=== PATIENT | male | born 1945 | race Caucasian/White ===

== ENCOUNTER 2016-05-23 13:07 | Emergency (ER) | payer MEDICARE ==
[~2016-05-23] VITALS: Ht 180.3 cm; Wt 122.7 kg
[2016-05-23 13:18] VITALS: BP 115/67; PULSE 56; RESP 20; O2SAT 98
--- NOTE | 2016-05-23 13:37 | ED.REPORT ---
HPI-General Illness Date of Service May 23, 2016 ED Provider: Brooklyn Winters MD This patient is a former smoking 70 year old male with a history of melanoma with excision and skin graft in November 2015 and pulmonary embolism and DVT on Xarelto, presenting to the ED complaining of bleeding from the surgical wound since yesterday morning. Pt's skin graft wound had been healing well until he started to develop pain 2 weeks ago. He states that it "feels swollen". Pt. states he recently moved from [place] and was seen by wound care there and currently has not established a PCP in [place] yet. He admits to a fever, diarrhea, myalgia, and cough but denies sore throat, nausea, vomiting, SOB, or chills. Fever Tmax: 100.4 for the last 2 days. Pt. states that he has had diarrhea every 30 mins - 1 hour for several weeks that are relieved by antidiarrheals. He also states that he had 5 episodes of diarrhea last night. He denies antibiotic use within the past few months. Nursing Notes Stated Complaint: POST SURGERY/WOUND IN BACK Chief Complaint: General Complaint Nursing Notes Reviewed: Yes Allergies: Coded Allergies: cephalexin (Verified Allergy, Severe, Rash,Itching,, 05/23/16) Influenza Virus Vaccines (Verified Allergy, Unknown, 05/23/16) Scheduled Metoprolol Succinate ER (Metoprolol Succinate ER) 100 Mg Tab.er.24h 100 MG PO DAILY Paroxetine (Paroxetine) 40 Mg Tablet 40 MG PO HS Prednisone (PredniSONE) 10 Mg Tablet 10 MG PO DAILY Simvastatin (Simvastatin) 20 Mg Tablet 20 MG PO HS Miscellaneous Medications Rivaroxaban (Xarelto) 20 Mg Tablet 20 MG PO General Time Seen by MD: 13:37 Chief Complaint Other (Bleeding/pain from wound ) Hx Obtained From: Patient, Daughter Sudden in Onset?: Yes Onset Occurred: Yesterday Symptom Duration: Since onset Location: : Back Quality: Fullness Radiation: : Does not radiate Severity: Current: Moderate Severity: Maximum: Moderate Associated with: Reports: Bleeding, Cough, Fever (Tmax: 100.4), Pain, Denies: Difficulty breathing, Discharge, Nausea, Shortness of breath, Vomiting Pertinent Negative: Pt denies other symptoms Recent Healthcare: No recent hospitalization, Recent doctor visit Similar Sx Previous: Yes Past Medical History Past Medical History Skin graft in November 2015 in [place] after melanoma excision [place] in November 2015 Remote history of pneumothorax Pulmonary embolism DVT Large cell arteritis Reports: Cancer (Melanoma ), Hypertension, Denies: Diabetes mellitus Past Surgical History Heart defilibrator Smoking History Former Smoker Social History Other Social History: Good social support, Local resident Ambulatory Status Independent Review of Systems Full Review of Systems Constitutional: Reports: Fever (Tmax: 100.4), Denies: Chills Respiratory: Reports: Non-productive cough, Denies: Shortness of breath Cardiovascular: Denies: Chest pain GI: Reports: Diarrhea, Denies: Abdominal pain, Nausea, Vomiting Musculoskeletal: Reports: Myalgia Complete sys rev & neg: except as marked. Physical Exam Vital Signs Vital Signs Date Time Temp Pulse Resp B/P Pulse Ox O2 Delivery O2 Flow Rate FiO2 05/23/16 17:57 36.9 63 18 105/36 100 Room Air 05/23/16 13:18 36.9 56 20 115/67 98 Initial VS: Reviewed, Vital signs normal General/Constitutional: Well-developed, Well-nourished Head / Eyes: Atraumatic, Normocephalic, PERRL ENT: Mucous membranes moist, Conjunctiva normal, No scleral icterus Neck: Supple, Non-tender, Full range of motion Respiratory: Breath sounds normal, Clear to auscultation, No respiratory distress Cardiovascular: Regular rate & rhythm, Heart sounds normal, Intact distal pulses Abdomen / GI: Soft, Non-tender, No guarding, No rebound, No distention Skin: Warm, Dry Neurologic: Alert, Oriented, Nonfocal Psychiatric: Mood/affect normal, Behavior normal, Normal thought content General/Constitutional: Awake, Alert, No acute distress, Well appearing, Well developed Back: Full range of motion 1.5 cm area open and draining serous fluid with surrounding tenderness. No fluctuance. Lower Extremity / Pelvis / MS: Neurologic intact, Vascular intact Trace edema Interpretation & Diagnostics Interpretation & Diagnostics: CT thoracic spine: IMPRESSION: Prominent abnormal soft tissue indicates either abnormal granulomatous tissue or recurrence of melanoma. Biopsy would be needed to evaluate this. No fluid collection to indicate abscess is seen. No underlying bone destructive lesion is seen. No involvement of central canal is seen. Prominent enhancement of hazy vertebral venous plexus is noted. Dictated by: Kamron Rodriguez M.D. on 05/23/2016 at 16:44 Lab Results Interpretation Result Diagram: 05/23/16 1430 05/23/16 1430 Test 05/23/16 14:25 05/23/16 14:30 Urine Color Dark yellow (YELLOW) Urine Appearance Clear (CLEAR,HAZY) Urine pH 6.5 (5.0-8.0) Urine Specific [place] 1.025 (1.003-1.035) Urine Protein Tracemg/dL (NEG,TRACE) Urine Glucose (UA) Negativemg/dL (NEGATIVE) Urine Ketones Negativemg/dL (NEGATIVE) Urine Occult Blood Negative (NEGATIVE) Urine Nitrite Negative (NEGATIVE) Urine Bilirubin Negative (NEGATIVE) Urine Urobilinogen Normalmg/dL (NORMAL) Urine Leukocyte Esterase Negative (NEGATIVE) Urine RBC 0-2/hpf (0-2) Urine WBC 0-5/hpf (0-5) Urine Epithelial Cells Moderate/hpf (NONE-MOD) Urine Crystals None seen (NONE SEEN) Urine Bacteria Few/hpf (NONE-FEW) Urine Hyaline Casts None/lpf (NONE) Urine Granular Casts None seen (NONE SEEN) Urine Waxy Casts None seen (NONE SEEN) Urine Red Blood Cell Casts None seen (NONE SEEN) Urine White Blood Cell Casts None seen (NONE SEEN) Urine Mucus Present (None Seen) Urine Trichomonas None seen (NONE SEEN) Urine Yeast None (NONE SEEN) Urinalysis Comment None Urine Culture Reflexed Not indicated White Blood Count 3.3th/mm3 (3.8-10.1) Red Blood Count 4.48mil/mm3 (4.40-5.80) Hemoglobin 13.1g/dL (13.8-17.2) Hematocrit 40.0% (41.0-50.0) Mean Corpuscular Volume 89.3fL (81-100) Mean Corpuscular Hemoglobin 29.2pg (27.0-35.0) Mean Corpuscular Hemoglobin Concent 32.8% (32.0-37.0) Red Cell Distribution Width 14.9% (12.3-15.4) Platelet Count 162bil/L (150-400) Neutrophils (%) (Auto) 36.4% (40-74) Lymphocytes (%) (Auto) 28.5% (14-46) Monocytes (%) (Auto) 31.5% (4-12) Eosinophils (%) (Auto) 1.8% (0-5) Basophils (%) (Auto) 0.3% (0-3) Sodium Level 140mEq/L (134-144) Potassium Level 4.3mEq/L (3.5-5.2) Chloride Level 102mEq/L (97-108) Carbon Dioxide Level 23mmol/L (18-29) Blood Urea Nitrogen 19mg/dL (8-27) Creatinine 1.10mg/dL (0.76-1.27) Estimat Glomerular Filtration Rate 70mL/min (>59) Glucose Level 100mg/dL (60-99) Calcium Level 9.7mg/dL (8.5-10.1) Magnesium Level 1.8mg/dL (1.6-2.6) Total Bilirubin 0.3mg/dL (0.0-1.2) Aspartate Amino Transf (AST/SGOT) 26U/L (0-50) Alanine Aminotransferase (ALT/SGPT) 15U/L (0-44) Alkaline Phosphatase 84U/L (25-160) Total Protein 7.0g/dL (6.4-8.4) Albumin 3.7g/dL (3.4-5.0) Hold Poon Top Tube Received (Received) X-Ray Chest Interpretation Chest Xray Interpretation: IMPRESSION: No acute disease is seen in the portable upright chest. Cause of fever is not identified on this x-ray. Dictated by: Kamron Rodriguez M.D. on 05/23/2016 at 17:14 View: Portable, 1 view Interpretation / Wet Read by: Interpret - Radiologist Re-Eval/Medical Decision Med Decision/Clinical Course This patient presents with an open draining lesion to his back where he previously had melanoma. It sounds like he was supposed to follow-up for further therapy but moved to this area and has not. It looks like he has had a recurrence of melanoma. I spoke with Dr. Dean will see him this week. I spoke with Dr. Mathews, one of our surgeons, they will also see him this week. I stressed the need for him to follow-up. As far as the patient's fever and achiness, it is likely related to inflammatory changes or mass. Time of Eval: 17:16 Patient Status: Condition unchanged Re-Evaluation/Progress Note: Pt. rechecked and ready for discharge. He was told to make an appointment with Dr. Bassett, oncologist, and Dr. Mathews, general surgeon this week. Pt. agrees and understands with plan. All questions have been addressed at this time. Consultation #1: Referral / Consult Name: Rajesh Dean MD Consulted With: Wash Tank Tender, On-call physician Call Returned at: 16:57 Student Development Specialist: Agrees with princess, Agrees with plan Note: Oncologist Consultation #2: Referral / Consult Name: Cliff Mathews MD Consulted With: Surgeon Call Returned at: 17:10 Student Development Specialist: Will see in office, Agrees with princess, Agrees with plan Counseled Regarding: Diagnosis, Lab results, Need for follow-up, When/why to return to ED Discharge & Departure Primary Impression: Recurrent malignant melanoma of skin Disposition: Home Discharge Condition All VS Reviewed: Yes Condition: Stable Additional Instructions: Thank you for entrusting your care with us today. You have recurrent melanoma and need more treatments and surgeries. Please call Dr. Dean, oncologist, to make an appointment to see him this week in his office. Also, please call Dr. Mathews, general surgeon, to make an appointment to see him this week in his office. Please call them tomorrow and let them know that Dr. Winters spoke with them. Return to the emergency department for emergent or concerning symptoms such as pus-like discharge or increased redness around the area. Referrals: Rajesh Dean MD, David M MD Scribe Attestation Portions of this note were transcribed by Emmy Middleton and Guerline Soto. I, Dr. Winters personally performed the history, physical exam and medical decision- making; I reviewed and confirmed the accuracy of the information in the transcribed note. Signed by: Emmy Middleton and Carina Austin, 05/23/2016 and 1723. copies to: Rajesh Dean MD; Cliff Mathews MD, Jena M MD May 23, 2016 13:37 Matilde Soto [Guerline] May 23, 2016 14:06 Emmy Middleton May 23, 2016 16:46
[2016-05-23] MEDS ORDERED: 0.9% Sodium Chloride 500 ML IV ONE (13:55)
[2016-05-23] MEDS ORDERED: METO-274 PO (14:04)
[2016-05-23] MEDS ORDERED: RIVA20TA PO (14:04)
[2016-05-23] MEDS ORDERED: PRE10 PO (14:04)
[2016-05-23] MEDS ORDERED: PARO40TA3 PO (14:04)
[2016-05-23] MEDS ORDERED: SIMV20TA4 PO (14:04)
[2016-05-23 14:43] LABS: BASOPHILS % (AUTO) 0.3 % (0-3); EOSINOPHILS % (AUTO) 1.8 % (0-5); MONOCYTES % (AUTO) 31.5 % (4-12); Mean Corpuscular Hemoglobin 29.2 pg (27.0-35.0); Mean Corpuscular Volume 89.3 fL (81-100); NEUTROPHILS % (AUTO) 36.4 % (40-74); Platelet Count 162 bil/L (150-400)
[2016-05-23 14:51] LABS: APPEARANCE,URINE CLEAR (CLEAR,HAZY); COLOR,URINE DARK YELLOW (YELLOW)
[2016-05-23 14:52] LABS: OCCULT BLOOD,URINE NEGATIVE (NEGATIVE); PH,URINE 6.5 (5.0-8.0); UROBILINOGEN,URINE NORMAL (NORMAL)
[2016-05-23 15:06] LABS: Magnesium 1.8 mg/dL (1.6-2.6)
--- NOTE | 2016-05-23 16:47 | DRSVH ---
PROCEDURE: CT THORACIC SPINE WITH CONTRAST ([id number]) INDICATIONS: open wound hx melanoma TECHNIQUE: After the administration of intravenous Isovue contrast, 3 mm thick sections acquired through the lev els of interest. Sagittal and coronal reformats were then constructed. For radiation dose reduction , the following was used: automated exposure control. COMPARISON: None. FINDINGS: Image quality: Excellent. Bones: No bony destructive change is seen. Enhancement in the region of basivertebral veins as though t to be due to the prominence of vasculature in the system rather than any tumor in the region. No ab normal destructive changes seen. Soft tissues: There is abnormal soft tissue dorsal to the thoracic spine centered at approximately T3 . As far as the craniocaudal dimension is concern and slightly to the left of midline in the axial pl ane. This area of abnormal soft tissue measures approximately 8 cm in length 2.8 cm in thickness in 1 0 cm in transverse dimension with a central ulceration. There is linear irregular areas of increased attenuation consistent with enhancement. No loculated fluid is seen. Prominence of the soft tissues w ithout loculated fluid makes this suspicious for recurrence of melanoma rather than simply inflammato ry change postoperative. Biopsy would be needed to confirm this. IMPRESSION: Prominent abnormal soft tissue indicates either abnormal granulomatous tissue or recurren ce of melanoma. Biopsy would be needed to evaluate this. No fluid collection to indicate abscess is s een. No underlying bone destructive lesion is seen. No involvement of central canal is seen. Prominent enhancement of hazy vertebral venous plexus is noted. Dictated by: Kamron Rodriguez M.D. on 05/23/2016 at 16:44 Approved by: Kamron Rodriguez M.D. on 05/23/2016 at 16:44
--- NOTE | 2016-05-23 17:16 | DRSVH ---
PROCEDURE: X-RAY CHEST ONE VIEW, PORTABLE ([id number]) INDICATIONS: fever TECHNIQUE: One view of the chest was acquired. COMPARISON: None. FINDINGS: Surgical changes and devices: Pacer defibrillator from the left chest with 2 leads is present. Lungs and pleura: No pleural effusions or pneumothorax. Lungs are clear. Mediastinum: Mediastinal contours appear normal. Heart size is normal. Bones and chest wall: No suspicious bony lesions. Overlying soft tissues appear unremarkable. IMPRESSION: No acute disease is seen in the portable upright chest. Cause of fever is not identified on this x-ray. Dictated by: Kamron Rodriguez M.D. on 05/23/2016 at 17:14 Approved by: Kamron Rodriguez M.D. on 05/23/2016 at 17:14
[2016-05-23 17:57] VITALS: BP 105/36; PULSE 63; RESP 18; O2SAT 100
[2016-08-26] MEDS ORDERED: DIGO125T73 PO (12:39)
[2016-08-26] MEDS ORDERED: FURO-129 PO (12:39)
== END 2016-05-23 17:58 | disposition home or self-care (01) ==
LOC: SED 13:07
DX: C44.90 Unspecified malignant neoplasm of skin, unspecified (principal); I10 Essential (primary) hypertension; Z86.711 Personal history of pulmonary embolism; I25.2 Old myocardial infarction; Z87.891 Personal history of nicotine dependence; Z88.1 Allergy status to other antibiotic agents; Z88.8 Allergy status to other drugs, medicaments and biological substances
CPT/HCPCS: 36415; 71010; 72129; 80053; 81000; 83735; 85025; 96361; 96374; 99285; J2060; J7040; Q9967

== ENCOUNTER 2016-06-06 18:27 | Inpatient (IN) | payer MEDICARE ==
[~2016-06-06] VITALS: Ht 180.3 cm; Wt 125.0 kg
[~2016-06-06 18:27] MED LIST: METO-274 PO; PARO40TA3 PO; PRE10 PO; RIVA20TA PO; SIMV20TA4 PO
[2016-06-06 18:50] VITALS: BP 134/84; PULSE 67; RESP 20; O2SAT 94
[2016-06-06 20:30] VITALS: BP 130/78; PULSE 72; RESP 19; O2SAT 92
[2016-06-06] MEDS ORDERED: 0.9% Sodium Chloride 1,000 ML IV ONE (20:46)
--- NOTE | 2016-06-06 20:46 | ED.REPORT ---
HPI-General Illness Date of Service Jun 06, 2016 ED Provider: Dr. Gonzalo Fall M.D. A 70 year old male with a medical history including DC, PE, DVT, hypertension, hyperlipidemia, and melanoma s/p melanoma excision presents to the ED with a fever (38.7 in ED) onset today. The patient also reports chills, left elbow pain , abdominal pain, and a chronic back wound from surgical melanoma excision. He denies cough, sore throat, dysuria, constipation, diarrhea, or bowel incontinence. The patient was recently seen by his oncologist with concern for returning melanoma. Nursing Notes Stated Complaint: FEVER, BODY CHILLS Chief Complaint: General Complaint Nursing Notes Reviewed: Yes Allergies: Coded Allergies: cephalexin (Verified Allergy, Severe, Rash,Itching,, 05/23/16) Influenza Virus Vaccines (Verified Allergy, Unknown, 05/23/16) Scheduled Metoprolol Succinate ER (Metoprolol Succinate ER) 100 Mg Tab.er.24h 100 MG PO DAILY Paroxetine (Paroxetine) 40 Mg Tablet 40 MG PO HS Prednisone (PredniSONE) 10 Mg Tablet 10 MG PO DAILY Rivaroxaban (Xarelto) 20 Mg Tablet 20 MG PO DAILY Simvastatin (Simvastatin) 20 Mg Tablet 20 MG PO HS General Time Seen by MD: 20:45 Chief Complaint Fever (38.7 in ED) Hx Obtained From: Patient Arrived By: Walk-in Sudden in Onset?: Yes Onset Occurred: 9 - 12 hours ago Symptom Duration: Since onset Location: : Abdomen: Back Quality: Painful Severity: Current: Moderate Severity: Maximum: Moderate Associated with: Reports: Abdominal pain, Denies: Cough Pertinent Negative: Relieved by nothing Context Related History: Reports Cancer (Melanoma), Reports Hiatal hernia Recent Healthcare: Recent doctor visit Past Medical History Past Medical History Notes: Past Medical History DC in November 2015 Remote history of pneumothorax Pulmonary embolism DVT Large cell arteritis Ascending aortic aneurysm Hyperlipidemia Depression Hiatal hernia Reports: Cancer (Melanoma), Hypertension Past Surgical History Heart defilibrator LAD cardiac stenting Skin graft in November 2015 in [place] after melanoma excision Smoking History Former Smoker Social History Other Social History: Good social support, From out of town ([place], [place]), Local resident Ambulatory Status Independent Review of Systems + chronic back wound from surgical melanoma excision Full Review of Systems Constitutional: Reports: Chills, Fever (38.7) Ears / Nose / Throat: Denies: Sore throat Respiratory: Denies: Non-productive cough GI: Reports: Abdominal pain, Denies: Constipation, Diarrhea Male: Denies Dysuria Musculoskeletal: Reports: Joint pain (Left elbow) Neurologic: Denies: Bowel dysfunction Complete sys rev & neg: except as marked. Physical Exam Vital Signs Vital Signs Date Time Temp Pulse Resp B/P Pulse Ox O2 Delivery O2 Flow Rate FiO2 06/06/16 22:35 76 18 136/82 96 Nasal Cannula 2 06/06/16 20:30 38.1 72 19 130/78 92 Room Air 06/06/16 18:50 38.7 67 20 134/84 94 Room Air Initial VS: Reviewed Head / Eyes: Atraumatic, Normocephalic ENT: Conjunctiva normal, No scleral icterus Neurologic: Alert, Oriented, Nonfocal Psychiatric: Mood/affect normal, Behavior normal, Normal thought content General/Constitutional: Awake, Alert, No acute distress Respiratory / Chest: Breath sounds NL, Breath sounds = bilat, No respiratory distress Cardiovascular: Heart rate NL, Regular rhythm, Heart sounds NL, No gallop, No murmurs, No rubs Upper Extremities Upper Extremity / MS: Full range of motion Left Elbow: Positive: Erythema present (Over olecranon), Warmth present (Over olecranon) No signs of left elbow bursitis Skin: Warm, Dry Chronic wound midline of thoracic spine No discharge Central small drainage areas with no current drainage Interpretation & Diagnostics Interpretation & Diagnostics: Influenza Negative Lab Results Interpretation Result Diagram: 06/06/16204006/06/162040 Test 06/06/16 20:41 06/06/16 22:00 White Blood Count 4.0th/mm3 (3.8-10.1) Red Blood Count 4.50mil/mm3 (4.40-5.80) Hemoglobin 13.1g/dL (13.8-17.2) Hematocrit 39.9% (41.0-50.0) Mean Corpuscular Volume 88.7fL (81-100) Mean Corpuscular Hemoglobin 29.1pg (27.0-35.0) Mean Corpuscular Hemoglobin Concent 32.8% (32.0-37.0) Red Cell Distribution Width 14.7% (12.3-15.4) Platelet Count 135bil/L (150-400) Neutrophils (%) (Auto) 62.0% (40-74) Lymphocytes (%) (Auto) 11.8% (14-46) Monocytes (%) (Auto) 24.1% (4-12) Eosinophils (%) (Auto) 0.3% (0-5) Basophils (%) (Auto) 0.3% (0-3) Erythrocyte Sedimentation Rate 19mm/hr (0-30) Sodium Level 136mEq/L (134-144) Potassium Level 4.5mEq/L (3.5-5.2) Chloride Level 97mEq/L (97-108) Carbon Dioxide Level 22mmol/L (18-29) Blood Urea Nitrogen 19mg/dL (8-27) Creatinine 0.90mg/dL (0.76-1.27) Estimat Glomerular Filtration Rate 88mL/min (>59) Glucose Level 127mg/dL (60-99) Lactic Acid Level 0.9mmol/L (0.4-2.0) Calcium Level 9.7mg/dL (8.5-10.1) Total Bilirubin 0.9mg/dL (0.0-1.2) Aspartate Amino Transf (AST/SGOT) 28U/L (0-50) Alanine Aminotransferase (ALT/SGPT) 15U/L (0-44) Alkaline Phosphatase 96U/L (25-160) Total Protein 6.8g/dL (6.4-8.4) Albumin 3.7g/dL (3.4-5.0) Urine Color Yellow (YELLOW) Urine Appearance Clear (CLEAR,HAZY) Urine pH 6.5 (5.0-8.0) Urine Specific [place] 1.025 (1.003-1.035) Urine Protein Negativemg/dL (NEG,TRACE) Urine Glucose (UA) Negativemg/dL (NEGATIVE) Urine Ketones 15mg/dL (NEGATIVE) Urine Occult Blood Trace (NEGATIVE) Urine Nitrite Negative (NEGATIVE) Urine Bilirubin Negative (NEGATIVE) Urine Urobilinogen Normalmg/dL (NORMAL) Urine Leukocyte Esterase Negative (NEGATIVE) Urine RBC 0-2/hpf (0-2) Urine WBC 0-5/hpf (0-5) Urine Epithelial Cells Occasional/hpf (NONE-MOD) Urine Crystals None seen (NONE SEEN) Urine Bacteria None/hpf (NONE-FEW) Urine Hyaline Casts None/lpf (NONE) Urine Granular Casts None seen (NONE SEEN) Urine Waxy Casts None seen (NONE SEEN) Urine Red Blood Cell Casts None seen (NONE SEEN) Urine White Blood Cell Casts None seen (NONE SEEN) Urine Mucus None seen (None Seen) Urine Trichomonas None seen (NONE SEEN) Urine Yeast None (NONE SEEN) Urine Culture Reflexed Not indicated X-Ray Chest Interpretation Chest Xray Interpretation: IMPRESSION: Subtle radiopacities at the lateral right lung base. Differential considerations include aspiration/infection and pulmonary nodule. Short interval follow up recommended. Dictated by: Jolly Ha M.D. on 06/06/2016 at 21:09 View: Portable, 1 view Interpretation / Wet Read by: Interpret - Radiologist X-Ray Interpretation Xray Interpretation: IMPRESSION: 1. Mild olecranon soft tissue swelling. This finding may be associated with cellulitis or bursitis. No underlying bony abnormality. 2. Small joint effusion. Dictated by: Jolly Ha M.D. on 06/06/2016 at 21:57 Study Performed: 3 View X-Ray Ordered: Elbow left Interpretation / Wet Read by: Interpret - Radiologist Re-Eval/Medical Decision Med Decision/Clinical Course 70-year-old male with a febrile illness. Most likely source appears to be his left elbow which appears to have a cellulitis. I do not appreciate an infected bursa nor do I believe that this is a septic arthritis given his good range of motion and minimal to no effusion on x-ray. He is hemodynamically stable his lactate is normal, he was considered however he does not have impressive findings for this chest x-ray and he does not have pulmonary symptoms. He has a cephalosporin allergy therefore was given IV linezolid. We will be admitted to the hospitalist service. Source of Hx: Old records Time of Eval: 21:28 Patient Status: Condition improved Re-Evaluation/Progress Note: Patient rechecked. Time of Eval: 23:10 Re-Evaluation/Progress Note: Discussed with patient x-ray and lab results, diagnosis, and plan for admit. Patient agrees with plan for care and all questions were addressed. Code status discussed in the presence of his [id number]. Patient is FULL CODE. Consultation : Referral / Consult Name: Jackelin Coffman DO Consulted With: Hospitalist Call Returned at: 23:31 Hospice Massage Therapist: Agrees with eval, Agrees with plan Counseled Regarding: Diagnosis, Lab results, Need for admission Discharge & Departure Primary Impression: Cellulitis Site of cellulitis: extremity Site of cellulitis of extremity: upper extremity Laterality: left Qualified Code: L03.114 - Cellulitis of left upper limb Disposition: ADMITTED TO HOSPITAL Discharge Condition All VS Reviewed: Yes Condition: Stable Referrals: NOPCP (PCP) Scribe Attestation Portions of this note were transcribed by Kaylynn Dodson. I, Dr. Fall, personally performed the history, physical exam, and medical decision-making; I reviewed and confirmed the accuracy of the information in the transcribed note. Signed by: Carina Hightower, 06/06/2016, 23:34 Gonzalo Fall MD Jun 06, 2016 20:45 KAYLYNN DODSON Jun 06, 2016 21:12
[2016-06-06] MEDS ORDERED: Ondansetron 2 mg/mL 2 mL Inj IV PRN (20:50)
[2016-06-06 20:59] LABS: BASOPHILS % (AUTO) 0.3 % (0-3); EOSINOPHILS % (AUTO) 0.3 % (0-5); MONOCYTES % (AUTO) 24.1 % (4-12); Mean Corpuscular Hemoglobin 29.1 pg (27.0-35.0); Mean Corpuscular Volume 88.7 fL (81-100); Platelet Count 135 bil/L (150-400)
--- NOTE | 2016-06-06 21:14 | DRSVH ---
PROCEDURE: X-RAY CHEST ONE VIEW, PORTABLE ([id number]) INDICATIONS: fever TECHNIQUE: One view of the chest was acquired. COMPARISON: [facility], CR, XR CHEST 1VW (PORTABLE), 05/23/2016, 16:32. FINDINGS: Surgical changes and devices: None. Lungs and pleura: Subtle airspace opacities are present at the lateral right lung base. The lungs are otherwise clear. No pleural effusion or pneumothorax. Mediastinum: Mediastinal contours appear normal. Heart size is normal. Bones and chest wall: No suspicious bony lesions. Overlying soft tissues appear unremarkable. IMPRESSION: Subtle radiopacities at the lateral right lung base. Differential considerations include aspiration/infection and pulmonary nodule. Short interval follow up recommended. Dictated by: Jolly Ha M.D. on 06/06/2016 at 21:09 Approved by: Jolly Ha M.D. on 06/06/2016 at 21:13
[2016-06-06] MEDS ORDERED: oxyCODONE-Acetamin 5-325 mg Tablet PO ONE (21:45)
--- NOTE | 2016-06-06 22:00 | DRSVH ---
PROCEDURE: X-RAY LEFT ELBOW COMPLETE, MINIMUM THREE VIEWS ([id number]) INDICATIONS: Left elbow pain/swelling ? soft tissue infection TECHNIQUE: 3 views of the elbow were acquired. COMPARISON: None. FINDINGS: Bones: No fractures or dislocations. No suspicious bony lesions. Soft tissues: There is mild soft tissue swelling over the olecranon. There is a small elbow joint ef fusion. No suspicious soft tissue calcifications. IMPRESSION: 1. Mild olecranon soft tissue swelling. This finding may be associated with cellulitis or bursitis. N o underlying bony abnormality. 2. Small joint effusion. Dictated by: Jolly Ha M.D. on 06/06/2016 at 21:57 Approved by: Jolly Ha M.D. on 06/06/2016 at 21:58
[2016-06-06 22:35] VITALS: BP 136/82; PULSE 76; RESP 18; O2SAT 96
[2016-06-06 22:42] LABS: APPEARANCE,URINE CLEAR (CLEAR,HAZY); COLOR,URINE YELLOW (YELLOW); OCCULT BLOOD,URINE TRACE (NEGATIVE); PH,URINE 6.5 (5.0-8.0); UROBILINOGEN,URINE NORMAL (NORMAL)
[2016-06-06] MEDS ORDERED: Linezolid Inj 600 MG in IV Premix 1 EACH IV ONE (23:15)
[2016-06-06] MEDS ORDERED: Polyethylene Glycol (PEG) 17 Gm Powder PO PRN (23:35)
[2016-06-06] MEDS ORDERED: Alum-Mag Hydrox-Simeth 30 mL Suspension PO PRN (23:35)
[2016-06-06] MEDS ORDERED: Ondansetron 2 mg/mL 2 mL Inj IVPUSH PRN (23:35)
[2016-06-07] VITALS (7 sets, daily range): BP systolic 81–134; BP diastolic 51–72; PULSE 58–84; RESP 16–24; O2SAT 91–98
[2016-06-07] MEDS ORDERED: METO-272 PO (01:24)
[2016-06-07] MEDS ORDERED: METO-274 PO (01:24)
[2016-06-07] MEDS ORDERED: OMEP20TA86 PO (01:28)
--- NOTE | 2016-06-07 01:28 | PCM.HPMED ---
Subjective Date of Service Jun 07, 2016 Primary Provider: Admitting Physician: Jackelin Coffman DO Primary Care Physician: Sarah Attending Physician: Jackelin Coffman DO Admit Status: From the Emergency Department, Remote Telemetry Chief Complaint: Fevers and chills History of Present Illness: Patient is a 70 year old male with a medical history including VA, PE, DVT, hypertension, hyperlipidemia, giant cell arteritis and melanoma s/p melanoma excision presents to the ED with a fever (102.7 at home and 38.7 in ED) onset today. Patient reports the his left elbow started to be painful and warm yesterday and today started to feel feverish with chills. Denies injury. Patient 's [id number] does report that the contrast for the PET scan was infused on left arm this past Tuesday. Associated symptom of abdominal pain, and a chronic back wound from surgical melanoma excision. Patient was recently seen in the ED for the wound in his back bleeding and oozing, was recently followed up by his oncologist, Dr. Huerta for possible recurrence of his melanoma and had a PET scan 3 days ago. He denies cough, sore throat, dysuria, constipation , diarrhea, or bowel incontinence. Patient currently does not have PCP, has establish care appointment with new provider in July. Sees Dr. Huerta regularly. In the ED, vital signs with temperature of 38.7, P67, RR20, BP 134/84, 94% on RA. WBC 4.0. Lactic acid 0.9. ESR 19. Patient was admitted for cellulitis. Review of Systems: Pertinent positives as noted in HPI. All other systems were reviewed and are negative. Allergies Coded Allergies: cephalexin (Verified Allergy, Intermediate, 06/07/16) Diarrhea, vomiting Influenza Virus Vaccines (Verified Adverse Reaction, Unknown, 06/07/16) Diarrhea, vomiting Home Medications Metoprolol Succinate ER (Metoprolol Succinate ER) 100 Mg Tab.er.24h 100 MG PO DAILY Paroxetine (Paroxetine) 40 Mg Tablet 40 MG PO HS Prednisone (PredniSONE) 10 Mg Tablet 10 MG PO DAILY Rivaroxaban (Xarelto) 20 Mg Tablet 20 MG PO DAILY Simvastatin (Simvastatin) 20 Mg Tablet 20 MG PO HS PMH VA in November 2015 Remote history of pneumothorax Pulmonary embolism DVT Large cell arteritis Ascending aortic aneurysm Hyperlipidemia Depression Hiatal hernia Hx of Melanoma Hypertension Surgical History Heart defibrillator LAD cardiac stenting Skin graft in November 2015 in [place] after melanoma excision Family History brother with DM2 mother with giant cell arteritis father with obesity and heart issues Social History Hx Alcohol Use: No Hx Substance Use: No Hx Tobacco Use: Yes Smoking Status: Former Smoker Living Arrangement: with Family Exam Vital Signs Vital Sign - Last Date Time Temp Pulse Resp B/P Pulse Ox O2 Delivery O2 Flow Rate FiO2 06/06/16 22:35 76 18 136/82 96 Nasal Cannula 2 06/06/16 20:30 38.1 Intake and Output 06/06/16 06/06/16 06/07/16 Cumulative From/Thru 15:00 23:00 07:00 06/06/16 18:50 - 06/06/16 23:36 Intake Total 1360 ml 300 ml 1660 ml Balance 1360 ml 300 ml 1660 ml Intake Oral 360 ml 360 ml IV Total 1000 ml 300 ml 1300 ml Exam GEN: AAOx3, NAD HEENT: NC/AT, PERRL, EOMI, sclera anicteric Neck: Supple with full ROM CV: Distant heart sounds. RRR, normal S1,S2. no murmurs, rubs or gallops. Peripheral pulses intact and normal Lungs: CTAB MSK: full extension of left elbow produces pain at olecranon Skin: Mild swelling, erythema and warmth on left olecranon and left lateral forearm, no fluctuance or open lesion noted. Open excisional wound at mid thoracic with no drainage or bleeding. Tenderness to palpation, whole upper back surrounding wound is erythematous and warm to touch Neuro: no focal deficits Psych: normal mood and affect, normal speech Lab and Diagnostics Result Diagram: 06/06/16204006/06/162040 X-Rays, CTs and MRIs Date of Service: 06/06/162045 PROCEDURE: X-RAY CHEST ONE VIEW, PORTABLE ([id number]) IMPRESSION: Subtle radiopacities at the lateral right lung base. Differential considerations include aspiration/infection and pulmonary nodule. Short interval follow up recommended. Dictated by: Jolly Ha M.D. on 06/06/2016 at 21:09 Date of Service: 06/06/162120 PROCEDURE: X-RAY LEFT ELBOW COMPLETE, MINIMUM THREE VIEWS ([id number]) INDICATIONS: Left elbow pain/swelling ? soft tissue infection IMPRESSION: 1. Mild olecranon soft tissue swelling. This finding may be associated with cellulitis or bursitis. No underlying bony abnormality. 2. Small joint effusion. Dictated by: Jolly Ha M.D. on 06/06/2016 at 21:57 Assessment & Plan Patient is a 70 year old male with a medical history including VA, PE, DVT, hypertension, hyperlipidemia, giant cell arteritis and melanoma s/p melanoma excision presents to the ED with a fever (102.7 at home and 38.7 in ED) onset today. Patient reports the his left elbow started to be painful and warm yesterday and today started to feel feverish with chills. Cellulitis of left arm, present on admission. Acute. - patient did have contrast infused on left arm for his PET scan at site of erythema one day prior to elbow pain - T38.7, RR20, does not meet SIRS criteria. qSOFA score of 0. - patient with recent severe allergic rxn to cephalexin, started on linezolid in ED - IVF - have low threshold to obtain BCx if patient continues to spike fever - Repeat lactic acid ordered with am labs Hypertension - continue home dose Metoprolol Hyperlipidemia - continue home dose simvastatin Hx of giant cell arteritis - continue home dose prednisone Hx of DVT and PE - continue home dose Xarelto Hx of VA with defibrillator - telemetry GERD - continue home dose PPI as needed Depression and anxiety - continue home dose paroxetine DVT prophy: Xarelto GI prophy: Home dose PPI PRN CODE: FULL Dispo: Patient admitted for observation likely to be less than 2 overnights, until medically stable. GI Prophylaxis: Proton Pump Inhibitor VTE Prophylaxis: Other (Xarelto) Resuscitation Status: CPR: Attempt Resuscitation Attending Statement The patient was seen and examined together with house staff on 06/06/2016 and I agree with the history, exam and plan as outlined in the note above. Wily Diaz DO Jun 07, 2016 00:02 Jackelin Coffman DO Jun 07, 2016 05:20
[2016-06-07] MEDS ORDERED: MULT-1073 PO (01:29)
[2016-06-07] MEDS ORDERED: 0.9% Sodium Chloride 1,000 ML IV SCH (01:55)
--- NOTE | 2016-06-07 02:40 | NUR ---
ADMIT Pt arrived on floor at 0045 via gurney. Transferred self to bed with cane SBA. NS running at 100. No pain at this time. Left arm swollen and red, also reports l. lymph node removal. Educated pt on not using left arm for BP or lab draws. Admit and med rec done per pt and daughter, Trisha. Hourly rounding in place.
[2016-06-07] MEDS: Pantoprazole 40 mg ER24 Tablet PO SCH (05:47)
[2016-06-07] MEDS ORDERED: MeTOProlol XL 50 mg ER24 Tablet PO SCH ×2 (08:30→21:00)
[2016-06-07] MEDS ORDERED: Hydrocortisone 50 mg/mL 2 mL Inj IVPUSH SCH (08:30)
[2016-06-07] MEDS ORDERED: predniSONE 10 mg Tablet PO SCH (08:30)
[2016-06-07] MEDS ORDERED: 0.9% Sodium Chloride 500 ML IV ONE ×2 (08:50→13:20)
[2016-06-07] MEDS: Vancomycin Dose per Pharmacist XX SCH (08:55)
[2016-06-07] MEDS: predniSONE 20 mg Tablet PO SCH (09:06)
--- NOTE | 2016-06-07 09:20 | NUR ---
Social Work Initial Assessment: SW met with patient at bedside to discuss discharge plan. Patient verified name, address, and contact information. Patient is a 70 year old male admitted under observation status on 06/06/16 for left elbow cellulitis. Patient payer as Medicare. 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 Patient states having VA benefits in [place] but states not being established in [place]. Patient states having no PCP but regularly follows up with oncologist MD Huerta. Patient states residing in [place] with , son and daughter. Patient states pharmacy of choice as [facility] in [place]. Patient has previous HHC history in past. Patient has no previous SNF history. Patient uses a walker and cane at home. Patient states having AD. SW encouraged patient to bring into hospital. Patient states using Xarelto at home and states being able to afford. Patient denied any other discharge needs at this time. SW will continue to follow if further needs arise. PLAN: Home with family via POV, pending clinical course. SW to follow. Jalen GOMEZ Addendum: 06/07/16 at 0925 by KAREN MODI Amended: Links added.
[2016-06-07] MEDS ORDERED: Vancomycin Inj 1,750 MG in Dextrose 5% 500 ML IV ONE (09:45)
[2016-06-07] MEDS ORDERED: Linezolid Inj 600 MG in IV Premix 1 EACH IV SCH (11:00)
--- NOTE | 2016-06-07 11:18 | DRSVH ---
PROCEDURE: US VEINOUS LEG DUPLEX UNILATERAL, LEFT INDICATIONS: Cellulitis of the left leg. Evaluate for DVT. TECHNIQUE: Real-time imaging, as well as color and pulse Doppler interrogation, were performed of the lower extr emity deep veins from the inguinal ligament to the popliteal fossa. COMPARISON: None. FINDINGS: The deep veins are normally compressible, and free of intraluminal thrombus. Color and pu lse Doppler demonstrate normal phasic intraluminal flow. There is normal augmentation response to di stal compression maneuver. IMPRESSION: No deep venous thrombosis in the left lower extremity. Dictated by: Cheri Lund M.D. on 06/07/2016 at 11:15 Approved by: Cheri Lund M.D. on 06/07/2016 at 11:15
--- NOTE | 2016-06-07 11:21 | DRSVH ---
PROCEDURE: US VENOUS ARM DUPLEX UNILATERAL, LEFT INDICATIONS: Left arm swelling. The patient had left axillary lymph node removal in November 2015. Evalua te for deep venous thrombosis. TECHNIQUE: Real-time imaging, as well as color and pulse Doppler interrogation, was performed of the left upper extremity deep veins from the inferior neck to the antecubital fossa. COMPARISON: [facility], US, US VENOUS LEG DPLX UNI LT, 06/07/2016, 9:13. FINDINGS: The internal jugular vein, visualized portions of the subclavian vein, axillary, and brach ial veins are free of intraluminal thrombus. Where physically possible, the veins are normally compr essible. Color and pulse Doppler demonstrate normal intraluminal flow, with expected phasicity and p ulsatility. Additional scanning of the cephalic and basilic veins of the superficial system demonstr ate normal compressibility, without thrombus. Limited examination due to the patient's body habitus. IMPRESSION: Limited examination due to the patient's body habitus. No definitive deep venous thrombo sis in the left upper extremity Dictated by: Cheri Lund M.D. on 06/07/2016 at 11:17 Approved by: Cheri Lund M.D. on 06/07/2016 at 11:20
--- NOTE | 2016-06-07 12:21 | NUR ---
Case Management: YANES and Medicare Part D info given and explained to patient at bedside at 10:25 am. Questions answered. Pt provided with copy, original placed on hard chart. BEN Cohen RN
--- NOTE | 2016-06-07 14:17 | PCM.PHAPRO ---
Progress Vancomycin Management by Pharmacy: -Indication: empiric treatment for pt with cellulitis of L arm -70 yo male, 125kg, serum creatinine 0.9, est clearance ~ 80ml/min -Tmax 37.8, wbc 4, lactic acid 0.9. -Concurrent antibiotics: none, had been initiated on Linezolid in ED -Plan: pt received a loading dose of Vancomycin 1.75gm at 10 am today. Subsequent maintenance doses will be 1.25gm iv [id number]. Trough level shall be checked prior to dose on 06/09 at 12:30 or sooner if creatinine trends up Светлана Candelaria [facility] Jun 07, 2016 14:17
--- NOTE | 2016-06-07 18:31 | NUR ---
Blood pressure Patient's BP reading this am was 81/51 mmHg, Dr. Garces aware. Ordered to fast drip 500 ml of NS. BP rechecked 103/69 mmHg, another 500 ml of NS was administered. Latest BP reading is 110/64 mmHg. Patient was given Ibuprofen 600 mg c/o headache with relief. ECG done this am, AX=574, SK=468. Dr. Garces aware during rounds. Will continue to monitor.
[2016-06-07] MEDS: PARoxetine 20 mg Tablet PO SCH (20:23)
[2016-06-08] MEDS ORDERED: VANCOMYCIN IV SCH (01:00)
[2016-06-08] MEDS ORDERED: DEXTROSE 5% IV SCH (01:00)
--- NOTE | 2016-06-08 01:41 | NUR ---
Pain Pt states, "I can't sleep. My arm is hurting. I need something stronger than ibuprofen." Pt encouraged to take ibuprofen to help decrease left arm pain/swelling. Paged re pt request. Oxycodone ordered. Arm elevated on pillows. Care ongoing
[2016-06-08 03:52] VITALS: BP 137/65; RESP 22; O2SAT 97
[2016-06-08] MEDS: Pantoprazole 40 mg ER24 Tablet PO SCH (06:34)
[2016-06-08 06:44] LABS: BASOPHILS % (AUTO) 0.7 % (0-3); MONOCYTES % (AUTO) 31.9 % (4-12); Mean Corpuscular Hemoglobin 29.4 pg (27.0-35.0); Mean Corpuscular Volume 89.4 fL (81-100); NEUTROPHILS % (AUTO) 42.7 % (40-74); Platelet Count 113 bil/L (150-400)
[2016-06-08 06:48] LABS: Magnesium 1.5 mg/dL (1.6-2.6); Phosphorus 2.8 mg/dL (2.5-4.9)
[2016-06-08] MEDS ORDERED: Magnesium Sulf 2 Gm/50mL Water 2 GM in IV Premix 1 EACH IV ONE (07:10)
[2016-06-08 08:03] VITALS: BP 100/64; PULSE 64; RESP 18; O2SAT 93
[2016-06-08] MEDS: Vancomycin Dose per Pharmacist XX SCH (08:22)
[2016-06-08] MEDS: predniSONE 20 mg Tablet PO SCH (08:22)
[2016-06-08 09:18] LABS: ERYTHROCYTE SEDIMENTATION RATE 38 mm/hr (0-30)
--- NOTE | 2016-06-08 11:38 | PCM.PNMED ---
Subjective Date of Service Jun 08, 2016 Subjective Patient became hypotensive yesterday, received 500 mL normal saline bolus twice Subsequent blood pressure has been stable, Vancomycin was continued, clindamycin was added this morning Patient feels that her arm is more painful and red Denied any visual impairment, pain on the mandaen area No difficulty breathing Exam Vital Signs Vital Sign - Last Date Time Temp Pulse Resp B/P Pulse Ox O2 Delivery O2 Flow Rate FiO2 06/08/16 08:03 36.8 64 18 100/64 93 Room Air 06/08/16 03:52 2.00 Intake and Output 06/07/16 06/07/16 06/08/16 Cumulative From/Thru 15:00 23:00 07:00 06/06/16 18:50 - 06/08/16 06:46 Intake Total 3722 ml 700 ml 6546 ml Output Total 800 ml 300 ml 1350 ml Balance 2922 ml 400 ml 5196 ml Intake Oral 1436 ml 300 ml 2246 ml IV Total 2286 ml 400 ml 4300 ml Output Urine Total 800 ml 300 ml 1350 ml Exam NAD, comfortably laying down on the bed no JVD, MMM, no LAD RRR, nl s1, s2 no mrg CTAB, no w,c S,ND,NT,normoactive BS+ warm, no edema, pulses 2/2 Left forearm, diffuse erythema, mild tenderness to palpate, no ulcers, full range of motion of left elbow joint IVs and Medications Medications Reviewed: Medications were reviewed in detail Lab and Diagnostics Result Diagram: 06/08/16 0555 06/08/16 0555 X-Rays, CTs and MRIs Date of Service: 06/06/162045 PROCEDURE: X-RAY CHEST ONE VIEW, PORTABLE ([id number]) IMPRESSION: Subtle radiopacities at the lateral right lung base. Differential considerations include aspiration/infection and pulmonary nodule. Short interval follow up recommended. Dictated by: Jolly Ha M.D. on 06/06/2016 at 21:09 Date of Service: 06/06/162120 PROCEDURE: X-RAY LEFT ELBOW COMPLETE, MINIMUM THREE VIEWS ([id number]) INDICATIONS: Left elbow pain/swelling ? soft tissue infection IMPRESSION: 1. Mild olecranon soft tissue swelling. This finding may be associated with cellulitis or bursitis. No underlying bony abnormality. 2. Small joint effusion. Dictated by: Jolly Ha M.D. on 06/06/2016 at 21:57 Assessment & Plan Patient is a 70 year old male with a medical history including [place], PE, DVT, hypertension, hyperlipidemia, giant cell arteritis and melanoma s/p melanoma excision presents to the ED with a fever (102.7 at home and 38.7 in ED) onset today. Patient reports the his left elbow started to be painful and warm yesterday and today started to feel feverish with chills. Acute and active #Fever, increased ESR and CRP, present on admission, source : lt forearm cellulitis from infiltrated IV given recent PET scan(reported), no SVT/DVT on doppler, clinically patient behaved as septic yesterday, fever/hypotension, so linezolid changed to vancomycin. also there is a possibility of giant cell arteritis despite limited information, pt stated that he was diagnosed presumptively GCA based on his high ESR, Fhx-mother had GCA, was hospitalized in [facility] 2008, started with prednisone 60mg then gradually tapered to 10mg but currently no follow up with Rheumatology as he recently moved from [place]. -Greatly appreciate Dr. Crawley input, will continue vanc, added clindamycin today for now, -continue prednisone 60mg for now, will try to contact PCP for collateral information -pending infectious w/u-MRSA swab, BCX ngtd. -bolus as needed target MAP>60 -trends fever curve, wbc, esr/crp chronic, stable, Hypertension, continue home dose Metoprolol decreased to 25 tartrate bid given hypotenstive episode 06/07 Hyperlipidemia, continue home dose simvastatin Hx of giant cell arteritis, described above Hx of DVT and PE, continue home dose Xarelto Hx of DE with defibrillator, telemetry GERD, continue home dose PPI as needed Depression and anxiety, continue home dose paroxetine DVT prophy: Xarelto GI prophy: Home dose PPI PRN CODE: FULL Dispo: Patient will likely need to stay 1-2more days given unclear clinical picture GI Prophylaxis: Proton Pump Inhibitor VTE Prophylaxis: Other (Xarelto) Resuscitation Status: CPR: Attempt Resuscitation Time spent 35 minutes Wally Garces MD Jun 08, 2016 11:38
--- NOTE | 2016-06-08 14:38 | CONS ---
[address] [address] CONSULTATION REPORT PATIENT: JUSTINO ZAMARRIPA : 1945 MR#: [id number] ADMIT: 06/06/2016 JOB ID: [id number] DATE OF SERVICE: 06/08/2016 REQUESTING PHYSICIAN: I thank Dr. Garces for this timely consult. REASON FOR CONSULTATION: Left upper extremity cellulitis. HISTORY OF THE PRESENT ILLNESS: The patient is an unfortunate 70-year-old gentleman with a complex past medical history involving giant-cell arteritis or multiple manifestations of organic heart disease, pulmonary emboli, and melanoma on his upper back that was diagnosed and initially treated this past summer. The patient has noted that there have been more problems with the site of his prior melanoma bleeding and perhaps increasing in size, so he sought evaluation just recently by Dr. Dean of our hem/onc department. Dr. Dean ordered a PET scan to evaluate the possibility of a metastatic or more extensive disease with respect to the melanoma, and this was performed on June 04. To facilitate this procedure, an IV was placed in his left antecubital fossa. The patient reports that shortly thereafter, he noticed erythema, tenderness, and warmth beginning actually on the posterior side around the elbow joint itself rather than in the antecubital area. This area of erythema progressively increased over the period of June 04 to June 06 and was associated with high fevers to 102.7, as well as chills, generalized malaise, headache, and some decrease in function in the left elbow and left upper extremity due to the progression of red, angry, and very tender the cellulitis involving primarily the antecubital side of the elbow. Because of these issues, the patient sought evaluation and got into the hospital very early yesterday morning on the . The patient was initially evaluated and started on appropriate antibiotics in the ER on the . One of the antibiotics which was initiated was the linezolid, but it appears that was discontinued because of concerns about drug interactions with other medications, and he now is on a combination of vancomycin and clindamycin. He reports that on this regimen he has already started to feel somewhat better in that his fevers and chills are diminishing, and he thinks may be the cellulitis on the left arm is already starting to get a little better. On the down side though, he reports feeling queasy and wonders if he is going to have perhaps some diarrheal episodes, though these have not yet started. He surmised these side effects may be due to his clindamycin. ID consultation is requested regarding appropriate antibiotic management. PAST MEDICAL HISTORY: 1. Melanoma diagnosed summer with possible localized recurrence at this time. 2. Giant cell arteritis. 3. Organic heart disease. a. Coronary artery disease. b. Ascending aortic aneurysm c. CHF. d. Pacemaker in place. 4. Pulmonary emboli and history of DVT. 5. Hypertension. 6. Hyperlipidemia. 7. Hiatal hernia. FAMILY HISTORY: Positive for a grandfather with tuberculosis, as well as a mother who had giant-cell arteritis. Other family members have had diabetes and heart issues. SOCIAL HISTORY: The patient is a nondrinker, nonsmoker. He did smoke in the distant past, but that was 30 or more years ago. He drinks alcohol on very rare occasions at this time. The patient served in the [employer] during the [place] War. 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 REVIEW OF SYSTEMS: The patient no longer has any headache, but he did earlier in his admission. He has got no visual changes. No sores in the mouth. No trouble swallowing. His neck is without adenopathy. His lungs relatively clear bilaterally. Cardiac tones are regular rate and rhythm without murmur. A pacer is present in the left upper chest. Patient's abdomen is obese, soft, and nontender. The back has an impressive lesion which is about 8 x 9 cm and is more or less a square or very slightly a rectangle. This area conforms to the area apparently where he had his melanoma removed, and a skin graft was done. There are currently pockets and open areas with oozing present within this large area which looks as if there may be progressive tumor. The patient does not have cervical or femoral adenopathy. His lower extremities are without obvious lesion, though he does has some venous stasis changes bilaterally around the ankles. There is no skin breakdown, cellulitis, or synovitis involving the lower extremities. His left upper extremity is notable for erythema which extends about senior care around his elbow. The elbow has full range of motion, and most of the inflammation is anterior rather than posterior. There is no bullae or skin breakdown, and the erythema is a bit warm and slightly tender but not impressively so. Neurologically, the patient is intact with good motor strength. He has peripheral pulses in his feet. LABORATORY STUDIES: Include white count 3100, platelet count 113,000, slowly dropping, sed rate 38, creatinine 0.96. LFTs are normal. CRP is 15.5. Rheumatoid factor is negative. JEOVANNY screen is negative. ANCA is pending. Micro data includes negative flu screen, negative blood cultures, and a negative respiratory viral panel. IMAGING: Includes a chest x-ray done on admission. There is subtle radiopacity at the right lateral lung base which could be aspiration, infection, or pulmonary nodule. An x-ray of the elbow itself shows mild olecranon soft tissue swelling without underlying bony abnormality. An ultrasound of the left upper extremity failed to show any clot. The left lower extremity was also ultrasounded and also has no clot. Of interest is the PET scan which was actually done last Tuesday at about the time the patient had the onset of the cellulitis. It shows an ulcerated subcutaneous mass involving the superior chest wall which they described as 12 x 6 cm. It does have a small focus of hypermetabolic activity. The radiologist thought that this was likely to represent malignancy rather than infection. IMPRESSION: This is a bit of a difficult case of cellulitis in a gentleman who is on chronic steroids for giant cell arteritis, but who also has what appears to be recurrent melanoma involving his back, as well as significant organic heart disease. It is unclear if this started from the venipuncture that was done on Tuesday the to facilitate his PET scan, but I would tend to doubt that just given the rarity of such infections. This infection certainly could be Staphylococcus or Streptococcus. Linezolid was an interesting choice, but given the patient's low platelets as well as his chronic treatment with an selective serotonin reuptake inhibitor, I think this would probably be unwise. I prefer not to give the patient vancomycin because of the inherent risk of toxicity and the need for a central line. I think that daptomycin may offer us a best alternative in terms of its known rapid effect on skin and soft tissue infections and good coverage for both of staphylococcal and streptococcal organisms. I also note this patient is from [place], [place], and just moved here a few months ago. 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 I suspect that the lesion on his back is melanoma, of course, but the possibility of cutaneous coccidioidomycosis is difficult to exclude. He also has a small pulmonary nodule which could be cancer, but it could also be Coxae. A final item of interest is his history of a grandfather with tuberculosis. I am sure this patient was checked while he was in the [employer] in the 1960s, but I think it is worthwhile to check a QuantiFERON Gold at this point. RECOMMENDATIONS: 1. I would discontinue the vancomycin and clindamycin he is on. 2. We will instead start him on daptomycin in a dose of about 6 mg/kg per 24 hours. 3. Will check ASO titer to look for evidence of strep, as well as a QuantiFERON Gold and a coccidioidomycosis antibody. 4. Will continue to follow this interesting patient with you going forward.
--- NOTE | 2016-06-08 15:11 | NUR ---
Case Management: IMM given and explained to patient. No questions at this time. Copy provided to pt, original placed on pt's hard chart. BEN Cohen RN
[2016-06-08] MEDS: DAPTOmycin Inj 750 MG in 0.9% Sodium Chloride 50 ML IV SCH (15:40)
[2016-06-08 16:50] VITALS: BP 107/61; PULSE 69; RESP 18; O2SAT 93
--- NOTE | 2016-06-08 18:50 | NUR ---
Daily Pt denies the need for pain medication, pt wanted nothing today for pain, his pain is in his upper back where he had melanoma removed at the end of last year. Pt had very dry feet and legs, put some lotion on his extremities and it helped immensely.
[2016-06-08 20:04] VITALS: BP 120/74; PULSE 87; RESP 17; O2SAT 94
[2016-06-08] MEDS: PARoxetine 20 mg Tablet PO SCH (20:17)
[2016-06-09 00:36] VITALS: BP 98/44; PULSE 72; RESP 16; O2SAT 98
[2016-06-09 05:31] VITALS: BP 116/69; PULSE 80; RESP 17; O2SAT 97
--- NOTE | 2016-06-09 06:21 | NUR ---
Pt stable throughout the night, however, was unable to sleep and reports feeling "agitated." Pt was medicated for pain during the night and reports no pain this am, and is pleasant when conversing. Pt reports this am that his PIV during the Outpatient PET scan (prior to admit) was placed in the right arm and not the left arm, which has the cellulitis. Addendum: 06/09/16 at 0626 by VEENA RENE RN Title of Note: Pt states he was mistaken to the placement of the PIV during the PET scan
[2016-06-09] MEDS: Pantoprazole 40 mg ER24 Tablet PO SCH (06:40)
[2016-06-09 07:37] LABS: BASOPHILS % (AUTO) 0.2 % (0-3); EOSINOPHILS % (AUTO) 0.5 % (0-5); MONOCYTES % (AUTO) 25.7 % (4-12); Mean Corpuscular Hemoglobin 28.4 pg (27.0-35.0); Mean Corpuscular Volume 89.1 fL (81-100); NEUTROPHILS % (AUTO) 51.7 % (40-74); Platelet Count 146 bil/L (150-400)
[2016-06-09 08:08] LABS: Magnesium 2.1 mg/dL (1.6-2.6); Phosphorus 2.8 mg/dL (2.5-4.9)
[2016-06-09] MEDS: predniSONE 20 mg Tablet PO SCH (08:21)
[2016-06-09] MEDS: DAPTOmycin Inj 750 MG in 0.9% Sodium Chloride 50 ML IV SCH (09:08)
--- NOTE | 2016-06-09 10:19 | PCM.PNMED ---
Subjective Date of Service Jun 09, 2016 Subjective Patient thinks that her left thumb is less warm, but erythema is spreading, more erythematous Otherwise patient feels great, eating well with good appetite Denied headache, vision changes, dizziness Exam Vital Signs Vital Sign - Last Date Time Temp Pulse Resp B/P Pulse Ox O2 Delivery O2 Flow Rate FiO2 06/09/16 05:31 37.0 80 17 116/69 97 Room Air 06/08/16 03:52 2.00 Intake and Output 06/08/16 06/08/16 06/09/16 Cumulative From/Thru 15:00 23:00 07:00 06/06/16 18:50 - 06/09/16 06:25 Intake Total 560 ml 7106 ml Output Total 1225 ml 2575 ml Balance -665 ml 4531 ml Intake Oral 560 ml 2806 ml IV Total 4300 ml Output Urine Total 1225 ml 2575 ml Exam NAD, comfortably laying down on the bed no JVD, MMM, no LAD RRR, nl s1, s2 no mrg CTAB, no w,c S,ND,NT,normoactive BS+ warm, no edema, pulses 2/2 Left forearm, diffuse erythema, less tender, still edematous IVs and Medications Medications Reviewed: Medications were reviewed in detail Lab and Diagnostics Result Diagram: 06/09/1671906/09/16 0720 X-Rays, CTs and MRIs Date of Service: 06/06/162045 PROCEDURE: X-RAY CHEST ONE VIEW, PORTABLE ([id number]) IMPRESSION: Subtle radiopacities at the lateral right lung base. Differential considerations include aspiration/infection and pulmonary nodule. Short interval follow up recommended. Dictated by: Jolly Ha M.D. on 06/06/2016 at 21:09 Date of Service: 06/06/162120 PROCEDURE: X-RAY LEFT ELBOW COMPLETE, MINIMUM THREE VIEWS ([id number]) INDICATIONS: Left elbow pain/swelling ? soft tissue infection IMPRESSION: 1. Mild olecranon soft tissue swelling. This finding may be associated with cellulitis or bursitis. No underlying bony abnormality. 2. Small joint effusion. Dictated by: Jolly Ha M.D. on 06/06/2016 at 21:57 Assessment & Plan Patient is a 70 year old male with a medical history including [place], PE, DVT, hypertension, hyperlipidemia, giant cell arteritis and melanoma s/p melanoma excision presents to the ED with a fever (102.7 at home and 38.7 in ED) onset today. Patient reports the his left elbow started to be painful and warm yesterday and today started to feel feverish with chills. Acute and active #Fever, increased ESR and CRP, present on admission, source : lt forearm cellulitis from infiltrated IV given recent PET scan(reported), no SVT/DVT on doppler, clinically patient behaved as septic yesterday, fever/hypotension, so linezolid changed to vancomycin. also there is a possibility of giant cell arteritis despite limited information, pt stated that he was diagnosed presumptively GCA based on his high ESR, Fhx-mother had GCA, was hospitalized in [facility] 2008, started with prednisone 60mg then gradually tapered to 10mg but currently no follow up with Rheumatology as he recently moved from [place]. -Greatly appreciate Dr. Crawley input, s/p vanc, added clindamycin briefly on then switched to daptomycin -continue prednisone 60mg for now, will try to contact PCP for collateral information -pending infectious w/u-MRSA swab, BCX ngtd, pending serology for coccidiomycosis, Quantiferon TB -autoimmune dz w/u- JEOVANNY negative, ANCA panel pending, -bolus as needed target MAP>60 -trends fever curve, wbc, esr/crp chronic, stable, Hypertension, continue home dose Metoprolol decreased to 25 tartrate bid given hypotenstive episode 06/07 Hyperlipidemia, continue home dose simvastatin Hx of giant cell arteritis, described above Hx of DVT and PE, continue home dose Xarelto Hx of [place] with defibrillator, telemetry GERD, continue home dose PPI as needed Depression and anxiety, continue home dose paroxetine DVT prophy: Xarelto GI prophy: Home dose PPI PRN CODE: FULL Dispo: Patient will likely need to stay 1-2more days given unclear clinical picture GI Prophylaxis: Proton Pump Inhibitor VTE Prophylaxis: Other (Xarelto) Resuscitation Status: CPR: Attempt Resuscitation Time spent 35 minutes Wally Garces MD Jun 09, 2016 10:19
--- NOTE | 2016-06-09 11:30 | PROG NOTE ---
[address] [address] PROGRESS NOTE PATIENT: JUSTINO ZAMARRIPA : 1945 MR#: [id number] ADMIT: 06/06/2016 JOB ID: [id number] DATE: 06/09/2016 INFECTIOUS DISEASE FOLLOWUP NOTE: REASON FOR FOLLOWUP: Left arm lymphedema with associated cellulitis. INTERVAL HISTORY: The patient notes there has been some progression of his left upper extremity cellulitis both proximally and distally overnight. He has not had overt fevers or chills, but he does note there may be some increased pain in the arm as well. No new respiratory or GI symptoms. PHYSICAL EXAMINATION: Reveals an afebrile gentleman, temp 37 degrees, pulse 80, respiratory rate 17, blood pressure 116/69. He is in no acute distress. Oral cavity is not remarkable. Lungs are clear. Abdomen is soft, obese, nontender. The left upper extremity cellulitis has extended considerably along the arm, between the elbow and extending almost all the way to the wrist now. It is mildly erythematous, mildly tender, and without bullae or skin breakdown. The patient has full range of motion of his hand. LABORATORIES: Include white count 4000, platelets 146, creatinine 1.01. Streptozyme 106. Micro studies include a MRSA screen which is pending, blood cultures negative, and a respiratory viral PCR panel negative. IMAGING: Of the arm shows no evidence for DVT. IMPRESSION: This is a gentleman with a history of melanoma who underwent a lymph node dissection in his left axilla. He now has some chronic swelling of his left upper extremity and has developed a cellulitis involving his left upper extremity which is fairly severe. This is likely a streptococcal cellulitis, though we cannot say yet, as we do not have a positive ASO titer or a culture. He has been started on daptomycin which I think is a reasonable choice as it provides almost total coverage for Staph, strep, and probably enterococcus. If his cellulitis does not improve over the next couple of days we may be forced to add gram-negative coverage but I suspect it will turn around before then. RECOMMENDATIONS: 1. Will continue with daptomycin as our sole antibiotic. 2. I would expect a major improvement in the next 2-3 days though perhaps not much before that.
[2016-06-09] MEDS ORDERED: Vancomycin Serum Trough XX ONE (12:30)
[2016-06-09 12:54] VITALS: BP 92/53; PULSE 59; RESP 17; O2SAT 96
[2016-06-09 16:55] VITALS: BP 125/84; PULSE 64; RESP 17; O2SAT 95
[2016-06-09] MEDS: PARoxetine 20 mg Tablet PO SCH (20:07)
[2016-06-09 20:22] VITALS: BP 126/90; PULSE 74; RESP 16; O2SAT 95
--- NOTE | 2016-06-09 23:21 | NUR ---
Assumed care RN was pulled assumed care of patient agree w/previous assessment , c/o of arm discomfort medicated w/prn roxicodone
[2016-06-10 05:44] VITALS: BP 123/79; PULSE 54; RESP 17; O2SAT 96
[2016-06-10] MEDS: Pantoprazole 40 mg ER24 Tablet PO SCH (06:27)
[2016-06-10 06:52] LABS: BASOPHILS % (AUTO) 0.4 % (0-3); EOSINOPHILS % (AUTO) 0.8 % (0-5); MONOCYTES % (AUTO) 21.2 % (4-12); Mean Corpuscular Hemoglobin 28.9 pg (27.0-35.0); Mean Corpuscular Volume 89.4 fL (81-100); Platelet Count 143 bil/L (150-400)
[2016-06-10 07:13] LABS: Magnesium 1.9 mg/dL (1.6-2.6); Phosphorus 3.2 mg/dL (2.5-4.9)
[2016-06-10 08:11] LABS: ERYTHROCYTE SEDIMENTATION RATE 49 mm/hr (0-30)
[2016-06-10] MEDS: predniSONE 20 mg Tablet PO SCH (08:47)
[2016-06-10 09:29] VITALS: BP 116/77; PULSE 52; RESP 16; O2SAT 96
[2016-06-10] MEDS: DAPTOmycin Inj 750 MG in 0.9% Sodium Chloride 50 ML IV SCH (09:50)
--- NOTE | 2016-06-10 11:15 | PROG NOTE ---
[address] [address] PROGRESS NOTE PATIENT: JUSTINO ZAMARRIPA : 1945 MR#: [id number] ADMIT: 06/06/2016 JOB ID: [id number] DATE: 06/10/2016 INFECTIOUS DISEASE FOLLOWUP NOTE: REASON FOR FOLLOWUP: Severe left upper extremity cellulitis in the setting of lymphedema secondary to axillary lymph node dissection for melanoma. INTERVAL HISTORY: Overnight the patient had a minimal sweat which was actually much less than a day before. No associated fevers or chills. He reports that the left arm pain around the elbow actually seems to be improving but he is having more pain along the volar surface of the forearm distally. He reports also some tingling in his hand at times, though he does have intact sensation. No new pulmonary or GI symptoms. PHYSICAL EXAMINATION: Reveals an afebrile gentleman who has been afebrile now since his first hospital day, so over the past 2-3 days. No fever. Temp 36.7, pulse 52 respiratory 16, blood pressure 116/77, saturating well on room air. Examination of oral cavity is unremarkable. Mental status is clear. Lungs relatively clear. Abdomen benign. The left axillary area is free of adenopathy, which is not too surprising since he had an axillary lymph node dissection. The left forearm cellulitis seems diffusely less intense, though along the volar surface of the forearm there is still some quite focal tenderness. There is no blistering bullae or skin breakdown. The hand is uninvolved and has intact pulses and sensation. LABORATORIES: Include white blood count 2500, platelet count 143,000, sed rate 49. His creatinine is 0.9. Urinalysis without white cells. Streptozyme negative. Coccidioidomycosis antibody is pending as is QuantiFERON Gold. MRSA screen has come back negative. Blood cultures negative. IMAGING: No new imaging has been done. IMPRESSION: This is a difficult case of a patient with a quite substantial left upper extremity cellulitis which is undoubtedly related to the axillary lymph node dissection he had, and chronic lymphedema of the left upper extremity. There is what would appear to be a streptococcal infection, but our first ASO titer is so far negative. I think he is improving in terms of his course based on the improvement in his CRP, as well as the resolution of his fevers, but he still has a ways to go before he could be transitioned to oral therapy and discharged. RECOMMENDATIONS: 1. Will continue with the IV daptomycin. 2. Will review this case again tomorrow and as we get closer to the weekend perhaps we can start to consider a transition to oral therapy, but that may still be a couple of days off, until there is more evidence of improvement.
--- NOTE | 2016-06-10 11:34 | PCM.PNMED ---
Subjective Date of Service Jun 10, 2016 Subjective Patient thinks that erythema is getting worse and more painful Exam Vital Signs Vital Sign - Last Date Time Temp Pulse Resp B/P Pulse Ox O2 Delivery O2 Flow Rate FiO2 06/10/16 09:29 36.7 52 16 116/77 96 Room Air 06/08/16 03:52 2.00 Intake and Output 06/09/16 06/09/16 06/10/16 Cumulative From/Thru 15:00 23:00 07:00 06/06/16 18:50 - 06/10/16 05:44 Intake Total 620 ml 560 ml 8286 ml Output Total 1300 ml 550 ml 4425 ml Balance -680 ml 10 ml 3861 ml Intake Oral 620 ml 560 ml 3986 ml IV Total 4300 ml Output Urine Total 1300 ml 550 ml 4425 ml Exam NAD, comfortably laying down on the bed no JVD, MMM, no LAD RRR, nl s1, s2 no mrg CTAB, no w,c S,ND,NT,normoactive BS+ warm, no edema, pulses 2/2 Left forearm, diffuse erythema, less tender, less edematous IVs and Medications Medications Reviewed: Medications were reviewed in detail Lab and Diagnostics Result Diagram: 06/10/1660406/10/16 06 X-Rays, CTs and MRIs Date of Service: 06/06/162045 PROCEDURE: X-RAY CHEST ONE VIEW, PORTABLE ([id number]) IMPRESSION: Subtle radiopacities at the lateral right lung base. Differential considerations include aspiration/infection and pulmonary nodule. Short interval follow up recommended. Dictated by: Jolly Ha M.D. on 06/06/2016 at 21:09 Date of Service: 06/06/162120 PROCEDURE: X-RAY LEFT ELBOW COMPLETE, MINIMUM THREE VIEWS ([id number]) INDICATIONS: Left elbow pain/swelling ? soft tissue infection IMPRESSION: 1. Mild olecranon soft tissue swelling. This finding may be associated with cellulitis or bursitis. No underlying bony abnormality. 2. Small joint effusion. Dictated by: Jolly Ha M.D. on 06/06/2016 at 21:57 Assessment & Plan Patient is a 70 year old male with a medical history including [place], PE, DVT, hypertension, hyperlipidemia, giant cell arteritis and melanoma s/p melanoma excision presents to the ED with a fever (102.7 at home and 38.7 in ED) onset today. Patient reports the his left elbow started to be painful and warm yesterday and today started to feel feverish with chills. Acute and active #Fever, increased ESR and CRP, present on admission, source : lt forearm cellulitis from infiltrated IV given recent PET scan(reported), no SVT/DVT on doppler, clinically patient behaved as septic yesterday, fever/hypotension, so linezolid changed to vancomycin. also there is a possibility of giant cell arteritis despite limited information, pt stated that he was diagnosed presumptively GCA based on his high ESR, Fhx-mother had GCA, was hospitalized in [facility] 2008, started with prednisone 60mg then gradually tapered to 10mg but currently no follow up with Rheumatology as he recently moved from [place]. -Greatly appreciate Dr. Crawley input, s/p vanc, added clindamycin briefly on then switched to daptomycin, but to continue for now and may switch to oral before this weekends. -continue prednisone 60mg for now, will try to contact PCP for collateral information, given low suspicion of GCA flare, would slowly taper steroid soon. -pending infectious w/u-MRSA swab, BCX ngtd, pending serology for coccidiomycosis, Quantiferon TB -autoimmune dz w/u- JEOVANNY negative, ANCA panel pending, -bolus as needed target MAP>60 -trends fever curve, wbc, esr/crp chronic, stable, Hypertension, continue home dose Metoprolol decreased to 25 tartrate bid given hypotenstive episode 06/07 Hyperlipidemia, continue home dose simvastatin Hx of giant cell arteritis, described above Hx of DVT and PE, continue home dose Xarelto Hx of [place] with defibrillator, telemetry GERD, continue home dose PPI as needed Depression and anxiety, continue home dose paroxetine DVT prophy: Xarelto GI prophy: Home dose PPI PRN CODE: FULL Dispo: Patient will likely need to stay 2-3 more days given IV antibiotics, slow response GI Prophylaxis: Proton Pump Inhibitor VTE Prophylaxis: Other (Xarelto) Resuscitation Status: CPR: Attempt Resuscitation Time spent 35 minutes Wally Garces MD Jun 10, 2016 11:34
--- NOTE | 2016-06-10 17:43 | NUR ---
Wound Care Wound evaluation order received, pt examined at bedside today. Patient is a 70 year old male with a medical history including [place], PE, DVT, hypertension, hyperlipidemia, giant cell arteritis and melanoma s/p melanoma excision presents to the ED with a fever (102.7 at home and 38.7 in ED). Pt presents with a lesion which has in the past been obviously widely excised and skin grafted at his mid back which has gone on to breakdown centrally. There is a 1 cm x 0.5 cm x 0.7 cm lesion at 12:00 from a larger but shallower lesion that is 2 cm x 3 cm x 0.1 cm. The small deep wound does not appear to be draining and does not tunnel but undermines minimally toward the larger ulcer. Both ulcers were cleaned and redressed. Suspicion is high for a reoccurrence of a cancerous lesion and patient tells me he has seen Dr Leyva and that Dr Garcia from plastics is to see the patient, I am unclear but suspect this may be occurring on an outpatient basis. I do not believe this lesion is responsible for his current hospitalization, while he has a cellulitis at his left elbow and forearm I cannot appreciate any skin issue bringing this on. Recommended hydrogel to this dry lesion on the back covered by a mepilex foam dressing and changed by nursing at 48 hour intervals. No further wound care needed at this time.
--- NOTE | 2016-06-10 17:46 | NUR ---
Pain This morning patient stated he had 8/10 pain in l arm r/t cellulitis. Arm was pink/red, swollen and painful to touch. Patient stated arm felt like it was getting worse. PRN oxycodone given with good relief. Patient currently states his arm feel much better than this morning and rates pain at 4/10.
[2016-06-10 17:54] VITALS: BP 125/78; PULSE 61; RESP 15; O2SAT 96
[2016-06-10] MEDS: PARoxetine 20 mg Tablet PO SCH (20:00)
[2016-06-10 20:02] VITALS: BP 138/76; PULSE 62; RESP 16; O2SAT 96
[2016-06-11 04:09] VITALS: BP 120/78; PULSE 71; RESP 20; O2SAT 98
--- NOTE | 2016-06-11 04:48 | NUR ---
Pain Pt reported Oxycodone effective for pain. Patient mentioned that his arm not as tight and feels a little bit better at this time. Left arm with some increase in redness from marking noted. No drainage noted. Dressing on mid upper back CDI. 02sat in mid to high 90s on 2L.
[2016-06-11] MEDS: Pantoprazole 40 mg ER24 Tablet PO SCH (05:59)
[2016-06-11 07:30] LABS: Mean Corpuscular Hemoglobin 29.2 pg (27.0-35.0); Mean Corpuscular Volume 89.6 fL (81-100); Platelet Count 156 bil/L (150-400)
--- NOTE | 2016-06-11 07:30 | NUR ---
Tele Hospitalist asked if tele was indicated and was informed that it is not at this time.
[2016-06-11] MEDS: predniSONE 20 mg Tablet PO SCH (08:22)
[2016-06-11 08:23] LABS: BASOPHILS % (AUTO) 1 % (0-3); EOSINOPHILS % (AUTO) 0 % (0-5); MONOCYTES % (AUTO) 18 % (4-12); NEUTROPHILS % (AUTO) 47 % (40-74)
[2016-06-11 08:27] VITALS: BP 145/90; PULSE 67; RESP 24; O2SAT 99
[2016-06-11 08:43] LABS: ERYTHROCYTE SEDIMENTATION RATE 1 mm/hr (0-30)
[2016-06-11 08:47] LABS: Magnesium 1.9 mg/dL (1.6-2.6); Phosphorus 3.4 mg/dL (2.5-4.9)
--- NOTE | 2016-06-11 09:22 | NUR ---
Daptomycin Per pharmacy, daptomycin is not currently in stock. ABO will be prepared as soon as it is received in the pharmacy.
--- NOTE | 2016-06-11 10:16 | PCM.PNMED ---
Subjective Date of Service Jun 11, 2016 Subjective Patient subjectively felt better today Complained of less pain and less redness and swelling on the left arm Exam Vital Signs Vital Sign - Last Date Time Temp Pulse Resp B/P Pulse Ox O2 Delivery O2 Flow Rate FiO2 06/11/16 09:23 Supplement Oxygen 06/11/16 08:27 36.5 67 24 145/90 99 06/11/16 04:09 2.00 Intake and Output 06/10/16 06/10/16 06/11/16 Cumulative From/Thru 15:00 23:00 07:00 06/06/16 18:50 - 06/11/16 06:05 Intake Total 1650 ml 956 ml 81356 ml Output Total 1100 ml 1260 ml 6785 ml Balance 550 ml -304 ml 4107 ml Intake Oral 1600 ml 956 ml 6542 ml IV Total 50 ml 4350 ml Output Urine Total 1100 ml 1260 ml 6785 ml # Voids 4 4 # Bowel Movements 3 3 Exam NAD, comfortably laying down on the bed no JVD, MMM, no LAD RRR, nl s1, s2 no mrg CTAB, no w,c S,ND,NT,normoactive BS+ warm, no edema, pulses 2/2 Left forearm, diffuse erythema, less tender, less edematous IVs and Medications Medications Reviewed: Medications were reviewed in detail Lab and Diagnostics Result Diagram: 06/11/16 0650 06/11/16 0650 X-Rays, CTs and MRIs Date of Service: 06/06/162045 PROCEDURE: X-RAY CHEST ONE VIEW, PORTABLE ([id number]) IMPRESSION: Subtle radiopacities at the lateral right lung base. Differential considerations include aspiration/infection and pulmonary nodule. Short interval follow up recommended. Dictated by: Jolly Ha M.D. on 06/06/2016 at 21:09 Date of Service: 06/06/162120 PROCEDURE: X-RAY LEFT ELBOW COMPLETE, MINIMUM THREE VIEWS ([id number]) INDICATIONS: Left elbow pain/swelling ? soft tissue infection IMPRESSION: 1. Mild olecranon soft tissue swelling. This finding may be associated with cellulitis or bursitis. No underlying bony abnormality. 2. Small joint effusion. Dictated by: Jolly Ha M.D. on 06/06/2016 at 21:57 Assessment & Plan Patient is a 70 year old male with a medical history including [place], PE, DVT, hypertension, hyperlipidemia, giant cell arteritis and melanoma s/p melanoma excision presents to the ED with a fever (102.7 at home and 38.7 in ED) onset today. Patient reports the his left elbow started to be painful and warm yesterday and today started to feel feverish with chills. Acute and active #Fever, increased ESR and CRP, present on admission, initially there was concern of forearm cellulitis from infiltrated IV given recent PET scan(however , it turned out that it was Rt arm pt had IV), no SVT/DVT on doppler, clinically patient behaved as septic on HD2, fever/hypotension, so linezolid changed to vancomycin. also there is a possibility of giant cell arteritis despite limited information, pt stated that he was diagnosed presumptively GCA based on his high ESR, Fhx-mother had GCA, was hospitalized in [facility], [place] 2008, started with prednisone 60mg at that time then gradually tapered to 10mg but currently no follow up with Rheumatology as he recently moved from [place]. -Greatly appreciate Dr. Crawley input, s/p vanc, added clindamycin briefly on then switched to daptomycin, but to continue for now and may switch to oral before this weekends. -s/p prednisone 60mg 3days for presumed GCA flare, however clinically more consistent to cellulitis, we will taper prednisone slowly today. -pending infectious w/u-MRSA swab, BCX ngtd, pending serology for coccidiomycosis, Quantiferon TB -autoimmune dz w/u- JEOVANNY negative, ANCA panel pending, -bolus as needed target MAP>60 -trends fever curve, wbc, esr/crp chronic, stable, Hypertension, continue home dose Metoprolol decreased to 25 tartrate bid given hypotenstive episode 06/07 Hyperlipidemia, continue home dose simvastatin Hx of giant cell arteritis, described above Hx of DVT and PE, continue home dose Xarelto Hx of [place] with defibrillator, telemetry GERD, continue home dose PPI as needed Depression and anxiety, continue home dose paroxetine DVT prophy: Xarelto GI prophy: Home dose PPI PRN CODE: FULL Dispo: Patient will likely need to stay 1-2 more days given IV antibiotics, slow response, follow-up with ID GI Prophylaxis: Proton Pump Inhibitor VTE Prophylaxis: Other (Xarelto) Resuscitation Status: CPR: Attempt Resuscitation Time spent 35 minutes Wally Garces MD Jun 11, 2016 10:16
[2016-06-11] MEDS: DAPTOmycin Inj 750 MG in 0.9% Sodium Chloride 50 ML IV SCH (11:14)
--- NOTE | 2016-06-11 12:04 | PROG NOTE ---
[address] [address] PROGRESS NOTE PATIENT: JUSTINO ZAMARRIPA : 1945 MR#: [id number] ADMIT: 06/06/2016 JOB ID: [id number] DATE: 06/11/2016 REASON FOR FOLLOWUP: Severe cellulitis, left upper extremity, in a patient who is status post lymph node dissection of the axilla. INTERVAL HISTORY: Overnight, the patient has been free of fevers, chills, or sweats. He still has some residual pain in his left forearm, but it is much improved over yesterday. He now has full range of motion of that left upper extremity. There is no pain in the axilla, no shortness of breath, and no nausea, vomiting, or muscle aches. PHYSICAL EXAMINATION: Reveals an afebrile gentleman in no acute distress. Temp 36.5, pulse 67, respiratory rate 24. Blood pressure 145/90, saturating well on room air. Oral cavity is benign. Lungs clear. Cardiac tones without change. Abdomen soft and nontender. Somewhat obese. Left upper extremity with much improved cellulitis. There is still erythema which covers the proximal half for so of the left forearm, but it is much diminished in its intensity. There is no longer much warmth and essentially no tenderness at this point. No palpable cords are noted. There is no swelling of the axillary lymph node. LABORATORIES: Include creatinine 0.87. CRP has declined from 15.5 down to 4.2, consistent with improvement in this process. Albumin is 3.3. White count is 2400 which is in keeping with prior numbers. He does have 3% metamyelocytes. Sedimentation rate was supposedly 49 yesterday and 1 today which I believe constitutes an error. Streptozyme negative. Powell C antibodies and QuantiFERON Gold are pending. MRSA screen negative. Blood cultures negative. No new imaging. IMPRESSION: This patient appears to have a significant streptococcal infection of his left upper extremity. We have been unable to prove the identity of the microbe, however, and he is being covered broadly with daptomycin. He reports that he has troubles with cephalosporins and with clindamycin and is concerned about side effect of oral antibiotics. Given the severity of this process, I think it is reasonable to continue to treat him with daptomycin for a total of 10 days as an outpatient rather than transition to anything oral. RECOMMENDATIONS: 1. Will continue with daptomycin 750 mg once a day. 2. I think the patient could be sent home later today or tomorrow after tomorrow morning's dose. 3. The patient has agreed to come back [place] the [facility] [place] for 750 mg of daptomycin through June 16. 4. A CPK baseline will be added to today's labs, and I have ordered that one be repeated on June 14, so as to monitor for possible toxicity of the daptomycin. 5. Given that he is now ready for discharge and we have established our discharge plan, ID is going to go ahead and sign off on this case.
[2016-06-11 12:08] LABS: Antiproteinase 3 (PR-3) Abs <3.5 U/mL (0.0-3.5); Perinuclear (P-ANCA) <1:20 titer (Neg:<1:20)
[2016-06-11] MEDS ORDERED: PRED-508 PO (13:38)
[2016-06-11] MEDS ORDERED: PRE10 PO (13:38)
[2016-06-11] MEDS ORDERED: DAPT500V2 IV (13:39)
--- NOTE | 2016-06-11 13:44 | PCM.DIMED ---
Discharge Instructions Date of Service Jun 11, 2016 Dates of Hospitalization Jun 06, 2016 at 23:35 Discharge Diagnosis Discharge Diagnosis Left forearm cellulitis questionable Giant cell Arteritis flare Medication Instructions Please note that your blood pressure medicine were briefly changed to lower dosage, metoprolol 25mg twice a day. if you feel unwell, monitor your blood pressure, if it's too low, taking metoprolol 50mg in the morning, hold evening dose of metoprolol 10mg. please follow schedule for steroid taper, 30mg for 7days, 15mg for 7days and back to home dose 10mg afterwards Diet No restrictions Activity No restrictions Call your provider Shortness of breath Patient Instructions You were hospitalized with acute onset left forearm pain, found to have skin infection, treated with antiobiotics. Given your fever, you were also treated for possible GCA flare Please follow medicine instruction as above, you will be scheduled for daily infusion of antibiotics, Daptomycin until 06/16 Follow-up plan Please follow up with your primary doctor in 2weeks, please check with [facility] to verify already scheduled appointment Please request Rheumatology referral given your history of presumed GCA Please follow up with Oncology clinic for your melenoma as scheduled. Follow-up with PCP in: 2 weeks Wally Garces MD Jun 11, 2016 13:44
--- NOTE | 2016-06-11 16:31 | NUR ---
Social Work: Brief Note Data & Assessment: Patient is a 70 y/o male who is on his fifth day of hospitalization. Patient is not medically stable for discharge. Patient was discuss in daily rounds and patient has approximately two days left of IV Antibiotics and he may be ready to discharge once they are complete. Patient does not have any SW needs at the current time. SW will continue to follow. Plan: Patient is likely to discharge home no needs. SW will continue to follow. Anali Griffin LMSW, GERARDO
--- NOTE | 2016-06-11 16:50 | NUR ---
Patient signed SHELDON
[2016-06-11 17:00] VITALS: BP 120/80; PULSE 94; RESP 16; O2SAT 95
--- NOTE | 2016-06-11 17:55 | NUR ---
Discharge Pt discharged from unit. Pt knows that he will either go to [facility] or [facility] for [address] infusion appointment and that he will be notified where to go. Pt decided that he did not want to leave in IV for infusion tomorrow and that he is fine with having it restarted when he arrives for his infusion. Pt provided with information on diagnosis, signs to watch for, and follow up. Pt's belongings taken with him, including his cell phone and laptop. Pt picked up by his son and taken off floor in wheelchair.
[2016-06-12] MEDS ORDERED: DAPTOmycin Inj 750 MG in 0.9% Sodium Chloride 50 ML IV SCH (08:30)
--- NOTE | 2016-06-13 11:18 | PCM.DC.MED ---
Discharge Summary Date of Service Jun 11, 2016 Dates of Hospitalization Date of Hospital Admission Jun 06, 2016 at 23:35 Date of Discharge: Jun 11, 2016 Providers: Admitting Physician: Jackelin Coffman DO Primary Care Physician: Nopcp Attending Physician: Jackelin Coffman DO Diagnosis at Time of Discharge Diagnosis at Time of Discharge Left forearm cellulitis questionable Giant cell Arteritis flare Hypertension, Hyperlipidemia, Hx of DVT and PE, Hx of [place] with defibrillator GERD Depression and anxiety Consultations ID Procedures XRay, CTs & MRIs Date of Service: 06/06/162045 PROCEDURE: X-RAY CHEST ONE VIEW, PORTABLE ([id number]) IMPRESSION: Subtle radiopacities at the lateral right lung base. Differential considerations include aspiration/infection and pulmonary nodule. Short interval follow up recommended. Dictated by: Jolly Ha M.D. on 06/06/2016 at 21:09 Date of Service: 06/06/162120 PROCEDURE: X-RAY LEFT ELBOW COMPLETE, MINIMUM THREE VIEWS ([id number]) INDICATIONS: Left elbow pain/swelling ? soft tissue infection IMPRESSION: 1. Mild olecranon soft tissue swelling. This finding may be associated with cellulitis or bursitis. No underlying bony abnormality. 2. Small joint effusion. Dictated by: Jolly Ha M.D. on 06/06/2016 at 21:57 Other Diagnostics PROCEDURE: US VENOUS ARM DUPLEX UNILATERAL, LEFT INDICATIONS: Left arm swelling. The patient had left axillary lymph node removal in November 2015. Evaluate for deep venous thrombosis. TECHNIQUE: Real-time imaging, as well as color and pulse Doppler interrogation, was performed of the left upper extremity deep veins from the inferior neck to the antecubital fossa. COMPARISON: [facility], , US VENOUS LEG DPLX UNI LT, 06/07/2016, 9 :13. FINDINGS: The internal jugular vein, visualized portions of the subclavian vein , axillary, and brachial veins are free of intraluminal thrombus. Where physically possible, the veins are normally compressible. Color and pulse Doppler demonstrate normal intraluminal flow, with expected phasicity and pulsatility. Additional scanning of the cephalic and basilic veins of the superficial system demonstrate normal compressibility, without thrombus. Limited examination due to the patient's body habitus. IMPRESSION: Limited examination due to the patient's body habitus. No definitive deep venous thrombosis in the left upper extremity Dictated by: Cheri Lund M.D. on 06/07/2016 at 11:17 Approved by: Cheri Lund M.D. on 06/07/2016 at 11:20 PROCEDURE: US VEINOUS LEG DUPLEX UNILATERAL, LEFT INDICATIONS: Cellulitis of the left leg. Evaluate for DVT. TECHNIQUE: Real-time imaging, as well as color and pulse Doppler interrogation, were performed of the lower extremity deep veins from the inguinal ligament to the popliteal fossa. COMPARISON: None. FINDINGS: The deep veins are normally compressible, and free of intraluminal thrombus. Color and pulse Doppler demonstrate normal phasic intraluminal flow. There is normal augmentation response to distal compression maneuver. IMPRESSION: No deep venous thrombosis in the left lower extremity. Dictated by: Cheri Lund M.D. on 06/07/2016 at 11:15 Approved by: Cheri Lund M.D. on 06/07/2016 at 11:15 Brief History History and physical obtained by on 06/06 Patient is a 70 year old male with a medical history including KY, PE, DVT, hypertension, hyperlipidemia, giant cell arteritis and melanoma s/p melanoma excision presents to the ED with a fever (102.7 at home and 38.7 in ED) onset today. Patient reports the his left elbow started to be painful and warm yesterday and today started to feel feverish with chills. Denies injury. Patient 's [id number] does report that the contrast for the PET scan was infused on left arm this past Tuesday. Associated symptom of abdominal pain, and a chronic back wound from surgical melanoma excision. Patient was recently seen in the ED for the wound in his back bleeding and oozing, was recently followed up by his oncologist, Dr. Huerta for possible recurrence of his melanoma and had a PET scan 3 days ago. He denies cough, sore throat, dysuria, constipation , diarrhea, or bowel incontinence. Patient currently does not have PCP, has establish care appointment with new provider in July. Sees Dr. Huerta regularly. In the ED, vital signs with temperature of 38.7, P67, RR20, BP 134/84, 94% on RA. WBC 4.0. Lactic acid 0.9. ESR 19. Patient was admitted for cellulitis. Hospital Course Patient is a 70 year old male with a medical history including KY, PE, DVT, hypertension, hyperlipidemia, giant cell arteritis and melanoma s/p melanoma excision presents to the ED with a fever (102.7 at home and 38.7 in ED) onset today. Patient reports the his left elbow started to be painful and warm yesterday and today started to feel feverish with chills. #Fever, increased ESR and CRP, present on admission, initially there was concern of forearm cellulitis from infiltrated IV given recent PET scan(however , it turned out that it was Rt arm pt had IV), no SVT/DVT on doppler, clinically patient behaved as septic on HD2 with fever/hypotension, so linezolid changed to vancomycin. also there was a possibility of giant cell arteritis despite limited information, pt stated that he was diagnosed presumptively GCA based on his high ESR, Fhx-mother had GCA, was hospitalized in [facility], [place] 2008, started with prednisone 60mg at that time then gradually tapered to 10mg but currently no follow up with Rheumatology as he recently moved from [place]. pt was seen by , vancomycin was stopped, added clindamycin briefly on 06/09 then switched to daptomycin eventually, plan tis to continue daptomycin 10days course until 06/16, pt will receive daily infusion in [facility]. All of infectious w/u were negative up to date. including MRSA swab, BCX, pending serology for coccidiomycosis, Quantiferon TB. pt was continued 60mg upon d/c, given clinical picture more suggestive of cellulitis, rather tahn GCA, plan is to slow taper of steroid [id number], 55q1tftk, 10mg afterwards, and pt was asked to see Band Presser for further evaluation. Of note JEOVANNY was negative, ANCA panel were pending upon d/c. Hypertension, continue home dose Metoprolol decreased to 25 tartrate bid given hypotenstive episode 06/07, will resume home dose upon d/c Hyperlipidemia, continue home dose simvastatin Hx of giant cell arteritis, described above Hx of DVT and PE, continued home dose Xarelto Hx of [place] with defibrillator, telemetry GERD, continued home dose PPI as needed Depression and anxiety, continued home dose paroxetine Exam Vital Signs (Last) Date Time Temp Pulse Resp B/P Pulse Ox O2 Delivery O2 Flow Rate FiO2 06/11/16 17:00 36.2 94 16 120/80 95 Room Air 06/11/16 04:09 2.00 Exam NAD, comfortably laying down on the bed no JVD, MMM, no LAD RRR, nl s1, s2 no mrg CTAB, no w,c S,ND,NT,normoactive BS+ warm, no edema, pulses 2/2 Left forearm, diffuse erythema, less tender, less edematous than previous day Test 06/06/16 22:00 06/07/16 08:15 06/08/16 05:55 06/08/16 14:25 Urine Color Yellow (YELLOW) Urine Appearance Clear (CLEAR,HAZY) Urine pH 6.5 (5.0-8.0) Urine Specific Kennard 1.025 (1.003-1.035) Urine Protein Negativemg/dL (NEG,TRACE) Urine Glucose (UA) Negativemg/dL (NEGATIVE) Urine Ketones 15mg/dL (NEGATIVE) Urine Occult Blood Trace (NEGATIVE) Urine Nitrite Negative (NEGATIVE) Urine Bilirubin Negative (NEGATIVE) Urine Urobilinogen Normalmg/dL (NORMAL) Urine Leukocyte Esterase Negative (NEGATIVE) Urine RBC 0-2/hpf (0-2) Urine WBC 0-5/hpf (0-5) Urine Epithelial Cells Occasional/hpf (NONE-MOD) Urine Crystals None seen (NONE SEEN) Urine Bacteria None/hpf (NONE-FEW) Urine Hyaline Casts None/lpf (NONE) Urine Granular Casts None seen (NONE SEEN) Urine Waxy Casts None seen (NONE SEEN) Urine Red Blood Cell Casts None seen (NONE SEEN) Urine White Blood Cell Casts None seen (NONE SEEN) Urine Mucus None seen (None Seen) Urine Trichomonas None seen (NONE SEEN) Urine Yeast None (NONE SEEN) Urine Culture Reflexed Not indicated Uric Acid 6.9mg/dL (2.6-7.2) Procalcitonin 1.70ng/mL (See Comment) Rheumatoid Factor 9.1IU/mL (0.0-13.9) Anti-Nuclear Antibody Screen Negative (Negative) Lactic Acid Level 1.1mmol/L (0.4-2.0) Myeloperoxidase <9.0U/mL (0.0-9.0) Cytoplasmic ANCA (c-ANCA) Antibody <1:20titer (Neg:<1:20) Proteinase 3 (PR3) Antibodies <3.5U/mL (0.0-3.5) Atypical p-ANCA <1:20titer (Neg:<1:20) Perinuclear ANCA (p-ANCA) Antibody <1:20titer (Neg:<1:20) Streptozyme 106.5IU/mL (0.0-200.0) Test 06/09/16 07:20 06/11/16 06:50 White Blood Count 2.4th/mm3 (3.8-10.1) Red Blood Count 3.66mil/mm3 (4.40-5.80) Hemoglobin 10.7g/dL (13.8-17.2) Hematocrit 32.8% (41.0-50.0) Mean Corpuscular Volume 89.6fL (81-100) Mean Corpuscular Hemoglobin 29.2pg (27.0-35.0) Mean Corpuscular Hemoglobin Concent 32.6% (32.0-37.0) Red Cell Distribution Width 14.6% (12.3-15.4) Platelet Count 156bil/L (150-400) Neutrophils (%) (Auto) 47% (40-74) Lymphocytes (%) (Auto) 30% (14-46) Monocytes (%) (Auto) 18% (4-12) Eosinophils (%) (Auto) 0% (0-5) Basophils (%) (Auto) 1% (0-3) Band Neutrophils % 2% (1-5) Myelocytes % 3% (0-0) Erythrocyte Sedimentation Rate 1mm/hr (0-30) Sodium Level 139mEq/L (134-144) Potassium Level 4.3mEq/L (3.5-5.2) Chloride Level 103mEq/L (97-108) Carbon Dioxide Level 23mmol/L (18-29) Blood Urea Nitrogen 21mg/dL (8-27) Creatinine 0.87mg/dL (0.76-1.27) Estimat Glomerular Filtration Rate 92mL/min (>59) Glucose Level 98mg/dL (60-99) Calcium Level 8.9mg/dL (8.5-10.1) Phosphorus Level 3.4mg/dL (2.5-4.9) Magnesium Level 1.9mg/dL (1.6-2.6) Total Bilirubin < 0.2mg/dL (0.0-1.2) Aspartate Amino Transf (AST/SGOT) 25U/L (0-50) Alanine Aminotransferase (ALT/SGPT) 24U/L (0-44) Alkaline Phosphatase 72U/L (25-160) Total Creatine Kinase 39U/L (21-232) C-Reactive Protein 4.2mg/dL (0.0-0.5) Total Protein 5.6g/dL (6.4-8.4) Albumin 3.3g/dL (3.4-5.0) Discharge Medications Discharge Medications Daptomycin (Daptomycin) 500 Mg Vial 750 MG IV DAILY Prescribed by: WALLY CASTANEDA MD Metoprolol Succinate ER (Metoprolol Succinate ER) 100 Mg Tab.er.24h 100 MG PO HS (Reported) Metoprolol Succinate ER (Metoprolol Succinate ER) 50 Mg Tab.er.24h 50 MG PO MORNING (Reported) Multivits-Min/FA/Lycopene/Lut (Centrum Silver Tablet) 1 Each Tablet 1 EACH PO MORNING (Reported) Omeprazole (Omeprazole) 20 Mg Tablet.dr 20 MG PO MORNING (Reported) Paroxetine (Paroxetine) 40 Mg Tablet 40 MG PO HS (Reported) Prednisone (PredniSONE) 10 Mg Tablet 10 MG PO MORNING Prescribed by: WALLY CASTANEDA MD Prednisone (Deltasone) 20 Mg Tablet 60 MG PO DAILY Prescribed by: WALLY CASTANEDA MD Rivaroxaban (Xarelto) 20 Mg Tablet 20 MG PO DAILYWD (Reported) Simvastatin (Simvastatin) 20 Mg Tablet 20 MG PO HS (Reported) Additional med instructions Please note that your blood pressure medicine were briefly changed to lower dosage, metoprolol 25mg twice a day. if you feel unwell, monitor your blood pressure, if it's too low, taking metoprolol 50mg in the morning, hold evening dose of metoprolol 10mg. please follow schedule for steroid taper, 30mg for 7days, 15mg for 7days and back to home dose 10mg afterwards Followup Plan Disposition: home Follow-up plan Please follow up with your primary doctor in 2weeks, please check with [facility] to verify already scheduled appointment Please request Rheumatology referral given your history of presumed GCA Please follow up with Oncology clinic for your melenoma as scheduled. Discharge Diet: No restrictions Discharge Activity: No restrictions Patient Instructions You were hospitalized with acute onset left forearm pain, found to have skin infection, treated with antiobiotics. Given your fever, you were also treated for possible GCA flare Please follow medicine instruction as above, you will be scheduled for daily infusion of antibiotics, Daptomycin until 06/16 Follow-up with PCP in: 2 weeks Time spent 65min Wally Castaneda MD Jun 13, 2016 11:18
[2016-08-26] MEDS ORDERED: FURO-129 PO (12:39)
[2016-08-26] MEDS ORDERED: DIGO125T73 PO (12:39)
== END 2016-06-11 17:55 | disposition home or self-care (01) | DRG 603 ==
LOC: SED 18:27 → OBSVTOIN 23:35 → MOC 23:35
PROVIDERS: ADMIT Internal Medicine; ATTEND Internal Medicine
DX: L03.114 Cellulitis of left upper limb (principal); I10 Essential (primary) hypertension; E78.5 Hyperlipidemia, unspecified; K21.9 Gastro-esophageal reflux disease without esophagitis; F41.8 Other specified anxiety disorders; M31.6 Other giant cell arteritis; I25.10 Atherosclerotic heart disease of native coronary artery without angina pectoris; B95.5 Unspecified streptococcus as the cause of diseases classified elsewhere; Z79.52 Long term (current) use of systemic steroids; Z95.810 Presence of automatic (implantable) cardiac defibrillator; I25.2 Old myocardial infarction; Z86.718 Personal history of other venous thrombosis and embolism; Z86.711 Personal history of pulmonary embolism; Z87.891 Personal history of nicotine dependence; Z85.820 Personal history of malignant melanoma of skin

== ENCOUNTER 2016-06-21 02:01 | Day surgery (SDC) | payer MEDICARE ==
[~2016-06-21] VITALS: Ht 180.3 cm; Wt 123.8 kg
[2016-06-21] VITALS (10 sets, daily range): BP systolic 103–124; BP diastolic 58–98; PULSE 50–61; RESP 15–21; O2SAT 94–98
[~2016-06-21 02:01] MED LIST changes: +DAPT500V2 IV; +METO-272 PO; +MULT-1073 PO; +OMEP20TA86 PO; +PRED-508 PO
[2016-06-21] MEDS ORDERED: LISI40TA PO (12:04)
[2016-06-21] MEDS ORDERED: PRE10 PO (12:04)
[2016-06-21 12:05] LABS: INR 0.98 ratio
--- NOTE | 2016-06-21 12:05 | NUR ---
Admit TASHIA Admitted to [facility] about 1115. VSS. Denies pain. Dressing present on back, c/d/i. IV started and labs sent. SOB on exertion. LS decreased in bases with exp. wheezes in RLL. SPO2 97-98% on RA. See EMR for further info and assessment. Procedure and recovery reviewed and verbalizes understanding. Awaiting radiologist.
[2016-06-21] MEDS ORDERED: 0.9% Sodium Chloride 500 ML ONE (12:16)
[2016-06-21] MEDS ORDERED: fentaNYL-PF 50 mCg/mL 2 mL Inj ONE (12:55)
[2016-06-21] MEDS ORDERED: Flumazenil 0.1 mg/mL 5 mL Inj IV ONE (12:55)
--- NOTE | 2016-06-21 14:48 | DRSVH ---
PROCEDURE: CT-GUIDED MUSCLE BIOPSY ([id number]) Sedation analgesia for 30 minutes. INDICATIONS: MELANOMA OF BACK TECHNIQUE: The indications, alternatives, benefits, risks, and possible complications of the procedure were comm unicated to the patient. Informed written consent from the patient was obtained and placed in the art. Continuous EKG and hemodynamic monitoring was started by trained personnel. For radiation dose reduction, the following was used: automated exposure control, adjustment of mA and/or kV according to patient size. The patient was brought to the CT suite and secretary office clerk spiral CT imaging was performed with localization g rid. The appropriate site for percutaneous access to the biopsy target was marked, was prepped and d raped sterilely, and was infused with local anaesthesia. Under CT guidance, a core biopsy trocar and needle set was advanced to the biopsy target, and specimen(s) were obtained. The trocar and needle were then removed, and the patient was sent for post-procedure monitoring. COMPARISON: None. FINDINGS: Biopsy site: 3 sites around the skin graft. One superiorly, one on the right, and one inferiorly. Needle: 20 gauge biopsy needle with introducer trocar. Number of passes: 12 passes total, for at each site. Medications: 1% lidocaine for local anaesthesia. IV Fentanyl and Versed for conscious sedation for 30 minutes (see nursing record). Complications: None. IMPRESSION: Successful CT-guided biopsy of 3 discrete regions of a large skin graft area on the uppe r back. Dictated by: Jolly Ha M.D. on 06/21/2016 at 14:45 Approved by: Jolly Ha M.D. on 06/21/2016 at 14:46
--- NOTE | 2016-06-21 15:35 | NUR ---
Procedure/Recovery See flowsheet for Procedure notes. Tolerated well with Fentanyl 50mcg and Versed 1mg. Dressing c/d/i. VSS. Taking po well. Monitor per orders.
--- NOTE | 2016-06-21 16:40 | NUR ---
Discharge Off bedrest at 1600. VSS. Drsg. with scant serosanguineous drainage at distal end. Denies pain. Discharge instructions given, see sheets. Verbalizes understanding. IV discontinued intact. Discharged ambulatory with all belongings at 1640 in no distress.
--- NOTE | 2016-06-22 13:36 | PATH ---
SURGICAL PATHOLOGY Attending Physician:Lee Leyva MD CASE STATUS: Signed Out PATIENT NAME: JUSTINO ZAMARRIPA PID: [id number] : 1945 DATE COLLECTED:06/21/2016 00:00 SPECIMEN: 1: Skin, biopsy 2: Skin, biopsy 3: Skin, biopsy CLINICAL HISTORY: UPPER BACK MELANOMA 1). MID RIGHT 2). INFERIOR 3). SUPERIOR FINAL DIAGNOSIS: 1. 3. SPECIMENS DESIGNATED MID RIGHT, INFERIOR, AND SUPERIOR: FRAGMENTS OF FIBROUS TISSUE AND SKELETAL MUSCLE PRESENT IN ALL THREE SPECIMENS, NEGATIVE FOR EVIDENCE OF MALIGNANCY AND SIGNIFICANT ATYPIA. ICD10 CODE Z85.820 GROSS DESCRIPTION: The specimen is received in three formalin filled containers labeled with the patient's name. 1). The specimen is sublabeled "mid right" and consists of multiple cylindrical shaped portions of tissue which aggregate to 1.1 x 0.2 x 0.1 CM. The specimen is entirely submitted in cassette 1A. 2). The specimen is sublabeled "inferior" and consists of multiple cylindrical shaped portions of tissue which aggregate to 0.7 x 0.2 x 0.1 CM. The specimen is entirely submitted in cassette 2A. 3). The specimen is sublabeled "superior" and consists of are 3 cylindrical shaped portions of tissue which aggregate to 0.6 x 0.2 x 0.1 CM. The specimen is entirely submitted in cassette 3A. 06/22/2016 DAC MICRO DESCRIPTION: See diagnosis. ICD-9 CODES: CPT CODES: 1: 02046 2: 37268 3: 15968 PROCEDURE/ADDENDA: Addendum SPI Addendum Diagnosis TEST: BRAF Analysis, Melanoma RESULT: NEGATIVE No BRAF V600E or V600K mutations were detected in the provided specimen. The sample submitted for analysis showed 75% tumor cellularity in 375 mm2 region per slide. 375 mm2 tumor tissue were used; 80% or more in >40 mm2 region (total tumor area from all available slides, 5uM) is optimal for evaluation. Therefore the result may not represent the true mutational status of this tumor. A follow up test is recommended if clinically indicated. Interpretation: Results should be interpreted in conjunction with clinical and other laboratory findings for the most accurate interpretation. Addendum Comment Microdissection Performed at [facility] [address] [place] [address]. Please see [facility] report [id number] for complete details. Electronically Signed Out Laura Richard MD Addendum SPI Addendum Diagnosis {Not Entered} Addendum Comment This is an addendum to clarify the prior addendum reported on 06/24/16. The BRAF analysis was performed on the patient' s previous excisional specimen ([facility], [place], [place], [id number]). A block for molecular testing was selected by the pathologist at [facility] for testing, and the results reported above. Electronically Signed Out Laura Richard MD Electronically Signed Out Gonzalo Shell MD [facility] [address], [place] [address] Technical component performed at [facility], [facility] [address], [place], [address]
[2016-08-26] MEDS ORDERED: DIGO125T73 PO (12:39)
[2016-08-26] MEDS ORDERED: FURO-129 PO (12:39)
== END 2016-06-21 23:59 | disposition home or self-care (01) ==
LOC: SOUO 02:01 → SCT 23:59
PROVIDERS: ATTEND Student in an Organized Health Care Education/Training Program
DX: D21.9 Benign neoplasm of connective and other soft tissue, unspecified (principal); I10 Essential (primary) hypertension; Z85.820 Personal history of malignant melanoma of skin; Z79.899 Other long term (current) drug therapy

== ENCOUNTER 2016-12-09 15:57 | Inpatient (IN) | payer MEDICARE ==
[~2016-12-09] VITALS: Ht 175.3 cm; Wt 123.5 kg
[~2016-12-09 15:57] MED LIST changes: -DAPT500V2 IV; +DIGO125T73 PO; +FURO-129 PO; +LISI-571 PO; -METO-272 PO; +PRD5T PO; -PRE10 PO; -PRED-508 PO; -SIMV20TA4 PO
[2016-12-09 16:05] VITALS: BP 112/70; PULSE 83; RESP 18; O2SAT 93
[2016-12-09 17:20] LABS: BASOPHILS % (AUTO) 0.2 % (0-3); EOSINOPHILS % (AUTO) 0 % (0-5); MONOCYTES % (AUTO) 33.6 % (4-12); Mean Corpuscular Hemoglobin 28.4 pg (27.0-35.0); Mean Corpuscular Volume 87.1 fL (81-100); Platelet Count 134 bil/L (150-400)
[2016-12-09 17:41] LABS: TROPONIN T < 0.010 ug/L (0.0-0.011)
--- NOTE | 2016-12-09 17:46 | DRSVH ---
PROCEDURE: CT BRAIN WITHOUT CONTRAST ([id number]) INDICATIONS: slurred speech, eval bleed, evidence of stroke TECHNIQUE: Noncontrast 4.5 mm thick angled axial sections acquired from the foramen magnum to the vertex, with c oronal reformats. COMPARISON: None. FINDINGS: Image quality: Excellent. CSF spaces: Basal cisterns are patent. No extra-axial fluid collections. There is moderate to keli re cerebral volume loss, with resultant ventricular and sulcal prominence. Brain: No intracranial hemorrhage, mass, or mass effect. There are subcortical, periventricular and deep white matter hypodensities consistent with mild chronic small vessel ischemic changes. No defi nite effacement of the terry-white matter junction identified. There is intracranial internal carotid artery atherosclerosis. Skull and face: Calvarium and visualized facial bones appear intact, without suspicious lesions. Sinuses: Visualized sinuses and mastoids are clear. IMPRESSION: 1. No definite acute intracranial abnormality. 2. Moderate to severe cerebral volume loss and mild chronic white matter small vessel ischemic roberts es. Dictated by: Brown Champion M.D. on 12/09/2016 at 17:43 Approved by: Brown Champion M.D. on 12/09/2016 at 17:45
[2016-12-09 17:52] LABS: Magnesium 1.6 mg/dL (1.6-2.6)
--- NOTE | 2016-12-09 18:11 | ED.REPORT ---
HPI-General Illness Date of Service Dec 09, 2016 ED Provider: Luis Soler MD Pt is a 71 y/o male anticoagulated on Xarelto w/ a hx of CAD and FL, recurrent PE and DVT, HTN, HLD, TAA, recurrent malignant melanoma, giant cell arteritis on chronic 7 mg prednisone, AICD placement, presenting to the ED with his family c/o speech difficulties onset this morning. The patient was trying to talk to a family member at 10:00 this morning and was experiencing speech difficulties describes as "nonsense words coming out" lasting 2-3 hours. His family and the patient reports that he still having trouble with his speech but he is not experience "nonsense words" anymore but his fluency is certainly decreased. He c/o associated moderate ROSADO which began last night, chills, fever, malaise, diaphoresis, mild cough. Pt denies focal numbness/weakness, SOB, abdominal pain, vomiting, diarrhea, dysuria, new rash, recent or current lower extremity edema. He is on Xarelto but states he did not take his dose today but has been taking it regularly otherwise. His chief concern at this moment is that his speech will not return back to normal. He does have a chronic tremor. Out of the room his daughter states he has not been taking any of his meds for 2 -3 days. The patient's also checked into the ED at the same time. Nursing Notes Stated Complaint: SLURRED SPEECH,CHILLS Chief Complaint: General Complaint Nursing Notes Reviewed: Yes ([employer] , meds not reconciled - EMR indicates h/ o anticoagulant use) Allergies: Coded Allergies: cephalexin (Verified Allergy, Intermediate, 06/21/16) Diarrhea, vomiting Influenza Virus Vaccines (Verified Adverse Reaction, Unknown, 06/21/16) Diarrhea, vomiting Scheduled Digoxin (Digoxin) 125 Mcg Tablet 125 MCG PO DAILY Furosemide (Lasix) 20 Mg Tablet 20 MG PO DAILY Lisinopril (Lisinopril) 5 Mg Tablet 5 MG PO DAILY Metoprolol Succinate ER (Metoprolol Succinate ER) 100 Mg Tab.er.24h 100 MG PO AM Multivits-Min/FA/Lycopene/Lut (Centrum Silver Tablet) 1 Each Tablet 1 EACH PO MORNING Omeprazole (Omeprazole) 20 Mg Tablet.dr 20 MG PO MORNING Paroxetine (Paroxetine) 40 Mg Tablet 40 MG PO HS Prednisone (PredniSONE) 5 Mg Tab 7 MG PO DAILY Rivaroxaban (Xarelto) 20 Mg Tablet 20 MG PO DAILYWD General Time Seen by MD: 18:07 Chief Complaint Multip medical complaints Hx Obtained From: Patient Arrived By: Walk-in Sudden in Onset?: No Onset Occurred: 9 - 12 hours ago Symptom Duration: Since onset Location: : Head Quality: Aching Severity: Current: Moderate Severity: Maximum: Moderate Similar Sx Previous: No Past Medical History Past Medical History CAD FL in November 2015 Remote history of pneumothorax h/o recurrent Pulmonary embolism DVT Giant cell arteritis Ascending aortic aneurysm Hypertension Hyperlipidemia Depression Hiatal hernia h/o recurrent malignant melanoma Chronic tremor Past Surgical History AICD Heart defilibrator LAD cardiac stenting Skin graft in November 2015 in [place] after melanoma excision Smoking History Former Smoker Social History Other Social History: Good social support, From out of town, Local resident Ambulatory Status Independent Review of Systems Full Review of Systems Constitutional: Reports: Chills, Fever, Malaise Respiratory: Reports: Non-productive cough, Denies: Shortness of breath GI: Denies: Abdominal pain, Diarrhea, Vomiting Male: Denies Dysuria Musculoskeletal: Denies: Extremity swelling Neurologic: Reports: Headache, Unable to speak, Denies: Focal weakness, Numbness Complete sys rev & neg: except as marked. Physical Exam Vital Signs Vital Signs Date Time Temp Pulse Resp B/P Pulse Ox O2 Delivery O2 Flow Rate FiO2 12/09/16 18:33 38.7 69 16 123/60 94 Room Air 12/09/16 18:12 74 30 102/52 94 Room Air 12/09/16 16:05 37.8 83 18 112/70 93 Room Air Initial VS: Reviewed, Vital signs abnormal Head / Eyes: Atraumatic, Normocephalic, PERRL ENT: Mucous membranes moist, Conjunctiva normal, No scleral icterus Respiratory: Breath sounds normal, Clear to auscultation, No respiratory distress Cardiovascular: Regular rate & rhythm, Heart sounds normal, Intact distal pulses Abdomen / GI: Soft, Non-tender Psychiatric: Mood/affect normal, Behavior normal, Normal thought content General/Constitutional: Awake, Alert, No acute distress, Cooperative, Not toxic appearing Appearance / Presentation: Positive: Obese Neck: Atraumatic, Supple, No meningismus, Full range of motion, No JVD Skin: Warm, Dry, Intact Color / Condition: Positive: Rash present Rash / Lesion Notes: Scaling rash over face - chronic Neurologic: Oriented X3, No sensory deficits, CN II - XII intact Speech is slow but understandable Has to work hard to find the right words and has to occasionally correct himself Mild weakness of the right leg NIH stroke scale = 3 Interpretation & Diagnostics Lab Results Interpretation Result Diagram: 12/09/16 1716 12/09/16 1716 Test 12/09/16 16:17 12/09/16 17:09 12/09/16 17:16 Digoxin Level 0.5nG/mL (0.9-2.0) Prothrombin Time 13.1sec (8.1-12.5) Prothromb Time International Ratio 1.22ratio White Blood Count 5.1th/mm3 (3.8-10.1) Red Blood Count 4.19mil/mm3 (4.40-5.80) Hemoglobin 11.9g/dL (13.8-17.2) Hematocrit 36.5% (41.0-50.0) Mean Corpuscular Volume 87.1fL (81-100) Mean Corpuscular Hemoglobin 28.4pg (27.0-35.0) Mean Corpuscular Hemoglobin Concent 32.6% (32.0-37.0) Red Cell Distribution Width 16.1% (12.3-15.4) Platelet Count 134bil/L (150-400) Neutrophils (%) (Auto) 48.0% (40-74) Lymphocytes (%) (Auto) 16.0% (14-46) Monocytes (%) (Auto) 33.6% (4-12) Eosinophils (%) (Auto) 0% (0-5) Basophils (%) (Auto) 0.2% (0-3) Sodium Level 133mEq/L (134-144) Potassium Level 3.2mEq/L (3.5-5.2) Chloride Level 96mEq/L (97-108) Carbon Dioxide Level 19mmol/L (18-29) Blood Urea Nitrogen 11mg/dL (8-27) Creatinine 1.28mg/dL (0.76-1.27) Estimat Glomerular Filtration Rate 59mL/min (>59) Glucose Level 146mg/dL (60-99) Lactic Acid Level 2.7mmol/L (0.4-2.0) Calcium Level 9.1mg/dL (8.5-10.1) Magnesium Level 1.6mg/dL (1.6-2.6) Total Bilirubin 0.7mg/dL (0.0-1.2) Aspartate Amino Transf (AST/SGOT) 24U/L (0-50) Alanine Aminotransferase (ALT/SGPT) 10U/L (0-44) Alkaline Phosphatase 93U/L (25-160) Troponin T < 0.010ug/L (0.0-0.011) Total Protein 6.7g/dL (6.4-8.4) Albumin 3.5g/dL (3.4-5.0) Lab Results Interpretation: CBC normal CMP mild hypokalemia, mild renal insufficiency Lactic acid elevated Blood cultures pending Dig level low INR normal-the patient is now on Xarelto ECG Interpretation ECG Interpretation: Sinus rhythm rate in 80s 1st degree AV block IVCD No interval change Computer reads as atrial flutter - I see no evidence of flutter waves Time: 18:47 Interpreted by: ED physician Normal ECG Interpretation: No acute ischemic changes X-Ray Chest Interpretation Chest Xray Interpretation: IMPRESSION: 1. Slightly increased left retrocardiac opacities may represent atelectasis or developing consolidation. Dictated by: Brown Champion M.D. on 12/09/2016 at 19:09 Approved by: Brown Champion M.D. on 12/09/2016 at 19:10 View: Portable, 1 view Interpretation / Wet Read by: Interpret - Radiologist CT Head Interpretation IMPRESSION: 1. No definite acute intracranial abnormality. 2. Moderate to severe cerebral volume loss and mild chronic white matter small vessel ischemic changes. Dictated by: Brown Champion M.D. on 12/09/2016 at 17:43 Approved by: Brown Champion M.D. on 12/09/2016 at 17:45 Study: Head CT no contrast Interpretation / Wet Read by: Interpret - Radiologist Re-Eval/Medical Decision Med Decision/Clinical Course This is a 71-year-old male presents with a chief complaint of a new expressive aphasia that began in early hours this morning. It has been persistent since, and while improved-this deficit persisted and is brought to the emergency room. Simultaneously since yesterday he also reports a possible fever or chills and rigors. He denies a cough, abdominal pain, nausea, vomiting dysuria or clear source. The patient is status-post being anticoagulated on Xarelto, tells me he has been compliant with his medication-the family came and told me that he stopped that he has also medicines after being chastised for not taking care of his he has had a decline in her health status and is also being checked in. As a result he may be inadequately anticoagulated. Denies prior history of CVA, but is on Xarelto for DVT/PE. On exam here - he does have a persistent speech deficit although it is mild. His stroke scale is 3. He is not a candidate for tPA for multitude of reasons. While he does not lose any point since he has no drift, he seems To work harder to lift his right leg up off the gurney than the left and patient and family state that is new as of today. Non contrast head CT was obtained and is negative. Patient has an AICD and cannot have an MRI. The patient borderline temperature here so workup for infectious etiology is underway. We are still trying to get a urine out of him, but no overt clearcut source is evident on exam. While the emergency department he did spike a fever. Additionally his lactic acid is elevated. Receiving Tylenol, fluids, and as soon as we get the urine empiric antibiotic so planned. (U/A returned negative). Patient has no headache to suggest meningitis, intracranial abscess. He has no alteration in mentation be expected imminent encephalitis, just an isolated focal deficit which would be atypical. As noted above patient claims his antibiotics or also, family says that they do not think he has-ray think this represents too a high risk situation attempt a lumbar puncture on any anticoagulant medications relatively given I have no way to confirm anticoagulation status. Overall the presentation for encephalitis seems unusual. This point the plan is admission. He will be treated for CVA, and a underlying infectious process is also suspected. He is on low-dose prednisone 7 mg daily for temporal arteritis, so a stress dose of hydrocortisone is being given given the infectious and CVA stressors. This was discussed with the hospitalist. Source of Hx: Old records Time of Eval: 19:52 Re-Evaluation/Progress Note: Pt rechecked. Informed pt of need for admission. Pt understands and agrees with plan for admission. All questions addressed. Consultation : Referral / Consult Name: Dmitry Nicole MD Consulted With: Hospitalist Call Returned at: 19:52 Analytical Lab Analyst: Will see patient, Agrees with eval, Agrees with plan, Accepts admit Differential Diagnosis: Negative: Abdominal pain, Acute coronary syndrome, Allergies, Drug dependence, Fracture, Hematoma, Laceration, Neutropenia, Syncope , Urinary tract infection Counseled Regarding: Diagnosis, Lab results, Need for admission Discharge & Departure Primary Impression: Stroke CVA mechanism: unspecified Qualified Code: I63.9 - Cerebral infarction, unspecified Additional Impressions: Expressive aphasia Weakness of right lower extremity Noncompliance with medication regimen Elevated lactic acid level Fever Fever type: unspecified Qualified Code: R50.9 - Fever, unspecified Anticoagulated by anticoagulation treatment Disposition: ADMITTED TO HOSPITAL Discharge Condition All VS Reviewed: Yes Condition: Stable Referrals: Tanisha Sal (PCP) Scribe Attestation Portions of this note were transcribed by [place]. I, Dr. Soler personally performed the history, physical exam and medical decision-making; I reviewed and confirmed the accuracy of the information in the transcribed note. copies to: Tanisha Sal Risk Factors )( TPA Administration/Criteria Stroke Thrombolytic Therapy : TPA Considered: Yes TPA Administered Intravenously: No, not indicated NIH Stroke Scale Level of Consciousness: Alert and responsive (0) Ask Month & Age: 1 question right (1) Open/Close Eyes/Hand Brass Instrument Repair Technician: Performs both tasks (0) Horizontal EO Movements: None (0) Visual Berrios: No visual loss (0) Facial Palsy: Normal symmetry (0) Right Arm Motor Drift (10s): No drift 10 sec (0) Left Arm Motor Drift (10s): No drift 10 sec (0) Right Leg Motor Drift (5s): No drift 5 sec (0) (Has to work much harder than left) Left Leg Motor Drift (5s): No drift 5 sec (0) Limb Ataxia FNF/Heel-Dominguez: No ataxia (0) Sensation (Arms/Legs/Face): No sensory loss (0) Language Aphasia: Loss fluency ID matls (1) Dysarthria: Slurring intelligible (1) Extinction/Inattention: No exctinct/inattent (0) NIHSS Score: 3 Time NIHSS Performed: 18:20 Date NIHSS Performed: Dec 09, 2016 Luis Soler MD Dec 09, 2016 18:11 [place] Dec 09, 2016 18:18
[2016-12-09 18:12] VITALS: BP 102/52; PULSE 74; RESP 30; O2SAT 94
[2016-12-09 18:33] VITALS: BP 123/60; PULSE 69; RESP 16; O2SAT 94
[2016-12-09 18:38] LABS: INR 1.22 ratio
[2016-12-09] MEDS ORDERED: 0.9% Sodium Chloride 1,000 ML IV ONE ×2 (18:45→20:00)
--- NOTE | 2016-12-09 19:12 | DRSVH ---
PROCEDURE: X-RAY CHEST ONE VIEW, PORTABLE ([id number]) INDICATIONS: fever, tachypnea TECHNIQUE: One view of the chest was acquired. COMPARISON: [facility], CR, XR CHEST 1VW (PORTABLE), 06/06/2016, 20:47. FINDINGS: Surgical changes and devices: Left chest wall dual-lead AICD appears stable in position. Lungs and pleura: No pleural effusions or pneumothorax. There are slightly increased indistinct lef t retrocardiac opacities. Mediastinum: Mediastinal contours appear unchanged. Heart size is at upper limits of normal. Bones and chest wall: No suspicious bony lesions. Overlying soft tissues appear unremarkable. IMPRESSION: 1. Slightly increased left retrocardiac opacities may represent atelectasis or developing consolidat ion. Dictated by: Brown Champion M.D. on 12/09/2016 at 19:09 Approved by: Brown Champion M.D. on 12/09/2016 at 19:10
[2016-12-09] MEDS ORDERED: Hydrocortisone 50 mg/mL 2 mL Inj IVPUSH ONE (20:05)
[2016-12-09 20:51] LABS: APPEARANCE,URINE CLEAR (CLEAR,HAZY); COLOR,URINE YELLOW (YELLOW); PH,URINE 5.5 (5.0-8.0)
[2016-12-09 20:52] LABS: OCCULT BLOOD,URINE TRACE (NEGATIVE)
[2016-12-09] MEDS ORDERED: cefTRIAXone Inj 2,000 MG in Dextrose 5% Minibag Plus 50 ML IV ONE (21:10)
[2016-12-09] MEDS ORDERED: SIMV20TA4 PO (21:13)
[2016-12-09] MEDS ORDERED: MAGN250T29 PO (21:13)
[2016-12-09 21:16] VITALS: BP 123/60; PULSE 69; RESP 16; O2SAT 94
[2016-12-09 21:23] VITALS: BP 90/61; PULSE 60; RESP 14; O2SAT 95
[2016-12-09 22:00] VITALS: PULSE 58
--- NOTE | 2016-12-09 22:33 | PCM.HPMED ---
Subjective Date of Service Dec 09, 2016 Primary Provider: Admitting Physician: Dmitry Nicole MD Primary Care Physician: Tanisha Sal Attending Physician: Dmitry Nicole MD Chief Complaint: Aphasia History of Present Illness: 71-year-old male with history of NE with LAD stenting who presented to the emergency department 11/2015, CHF with an EF of 40% and AICD, hypertension, hyperlipidemia, TAA, giant cell arteritis on chronic prednisone, and history of multiple DVT/PE who is normally on Xarelto who presented to emergency department with his family this evening due to no small aphasia, difficulty swallowing, some decreased strength in his right leg, and cloudy mentation that started today around 10 AM today. Patients family states that his speech became erratic and non-sensical for 2-3 hours. The speech improved slightly before he presented but on interview he is still having trouble finding words and his speech is noticeably delayed. He endorses chills, fever, malaise, diaphoresis, mild cough. Pt denies focal numbness, headache, or cough, sputum, SOB, dysuria, diarrhea, nausea/vomiting. 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 In the ED pt had a CT brain was negative for bleed with noticeable volume loss. Patient was given 100mg and 2L NS. Patient became febrile while in the ED and was treated with Ceftriaxone. CMP was positive for numerous electrolyte abnormalities with elevated creatinine. NIH score of 3 when seen by ED physician. Review of Systems: Complete review of systems performed; pertinent positives and negatives per history of present illness, all other systems reviewed and are negative Allergies Coded Allergies: cephalexin (Verified Allergy, Intermediate, 06/21/16) Diarrhea, vomiting Influenza Virus Vaccines (Verified Adverse Reaction, Unknown, 06/21/16) Diarrhea, vomiting Home Medications Digoxin (Digoxin) 125 Mcg Tablet 125 MCG PO DAILY Furosemide (Lasix) 20 Mg Tablet 20 MG PO DAILY Lisinopril (Lisinopril) 5 Mg Tablet 5 MG PO DAILY Metoprolol Succinate ER (Metoprolol Succinate ER) 100 Mg Tab.er.24h 100 MG PO AM Multivits-Min/FA/Lycopene/Lut (Centrum Silver Tablet) 1 Each Tablet 1 EACH PO MORNING Omeprazole (Omeprazole) 20 Mg Tablet.dr 20 MG PO MORNING Paroxetine (Paroxetine) 40 Mg Tablet 40 MG PO HS Prednisone (PredniSONE) 5 Mg Tab 7 MG PO DAILY Rivaroxaban (Xarelto) 20 Mg Tablet 20 MG PO DAILYWD PMH CAD NE in November 2015 Remote history of pneumothorax h/o recurrent Pulmonary embolism DVT Giant cell arteritis Ascending aortic aneurysm Hypertension Hyperlipidemia Depression Hiatal hernia h/o recurrent malignant melanoma Chronic tremor Surgical History AICD Heart defilibrator LAD cardiac stenting Skin graft in November 2015 in [place] after melanoma excision Family History Mother of colon cancer Cannot remember father history Social History Hx Alcohol Use: No (Quit 2007) Hx Substance Use: No Hx Tobacco Use: Yes Smoking Status: Former Smoker Living Arrangement: with Family Exam Vital Signs Vital Sign - Last Date Time Temp Pulse Resp B/P Pulse Ox O2 Delivery O2 Flow Rate FiO2 12/09/16 21:23 37.2 60 14 90/61 95 Room Air Exam General: Age-appropriate male in no acute distress HEENT: PERRLA, EOMI, nonicteric, membranes moist Lymph: No lymphadenopathy Cardio: Regular rate and rhythm no murmurs rubs or gallops Respiratory: CTA bilaterally, no wheezes, no crackles Abdomen: Soft, positive bowel sounds, nontender, nondistended Extremities: No edema, 5 out of 5 in all extremities except right lower leg which is 4.5/5 strength Psych: Appropriate mood and affect Neuro: CN II through XII intact except for CN IX, sensation intact throughout, mild decrease in strength on the right lower extremity, mild-moderate dysphasia Skin: No rash NIH of 2 due to aphasia Lab and Diagnostics Result Diagram: 12/09/16171512/09/161715 X-Rays, CTs and MRIs Brain CT 1. No definite acute intracranial abnormality. 2. Moderate to severe cerebral volume loss and mild chronic white matter small vessel ischemic changes Dictated by: Brown Champion M.D. on 12/09/2016 at 17:43 Chest x-ray 1. Slightly increased left retrocardiac opacities may represent atelectasis or developing consolidation. Dictated by Brown Champion M.D. on 12/09/2016 at 19:09 12-lead ECG She is to be an a flutter Assessment & Plan 71-year-old male with a very complicated medical history pertinent for cardiac disease and recurrent pulmonary embolism/DVT on chronic Xarelto who stopped taking his anticoagulant 3 days ago presents with symptoms of stroke. TIA/stroke; present admission; ongoing -Persistent aphasia with no signs of headache -Patient off anticoagulation; previous hx of clotting -CT brain was negative for bleed -Cannot do MRI due to AICD is -Acute kidney injury prohibits use of contrast, so no CT angiogram plan for this evening -Repeat CT non-contrast brain tomorrow -Atorvastatin 20 mg daily -Aspirin 81 mg daily -Lipid panel and A1c -Permissive hypertension; control > 220 with labetalol -Plavix given -Speech and Physical therapy Severe Sepsis second to possible CAP; present on admission; ongoing -New fever with evidence of retrocardiac consolidations on CXR; no compelling evidence for meningitis -Urine was unremarkable, no areas of cellulitis identified on exam -Lactic acid elevated; trending -Started on ceftriaxone -Continue Ceftriaxone and azithromycin -Procalcitonin -Blood cultures -Sputum culture -Strep pneumonia/legionella ag -Low threshold for lumbar puncture Acute kidney injury with electrolyte abnormalities likely second to sepsis; present on admission; ongoing -Baseline creatinine normal -Consider SPEP if does not resolved -2L NS and 80ml/hr maintenance -replace K 20meq IV -Careful replacement due to CHF Atrial flutter and hx of recurrent PE not on anticoagulation; present on admission; ongoing -Stopped taking his Xarelto -EKG shows a-flutter -Restart Xarelto -Continue metoprolol -Continue Digoxin -Previous work-up for vasculitis negative Systolic heart failure; present on admission; ongoing -EF 40% -Continue Metoprolol, lisinopril, and lasix after permissive htn window over -Monitor for signs of overload Hypertension; present on admission; ongoing -Continue home medications tomorrow CAD-continue asa and plavix Giant cell arteritis-continue 7mg prednisone Hyperlipidemia-on statin Depression-continue paroxetine Disposition: Patient is being admitted to inpatient status with expected length of stay greater than two midnights due to to severity of presentation, duration of treatment, and risks of adverse events disposition Full code Pain Evaluation: Adequate Pain Control GI Prophylaxis: H2 radha VTE Prophylaxis Indicated: Contraindicated Resuscitation Status: CPR: Attempt Resuscitation Attending Statement The patient was seen and examined together with Dr. Sagastume on 12/09 and I agree with the history, exam and plan as outlined in the note above. Cesario Sagastume DO Dec 09, 2016 22:33 Dmitry Nicole MD Dec 09, 2016 23:22
[2016-12-09] MEDS ORDERED: Potassium Phos (mEq) Inj 20 MEQ in Dextrose 5% 250 ML IV ONE (23:00)
[2016-12-09] MEDS: 0.9% Sodium Chloride 1,000 ML IV SCH (23:10)
[2016-12-10] VITALS (8 sets, daily range): BP systolic 96–121; BP diastolic 53–75; PULSE 51–64; RESP 16; O2SAT 96–100
[2016-12-10] MEDS: Azithromycin Inj 500 MG in Dextrose 5% w/Vial Mate 250 ML IV SCH ×2 (01:05→23:31)
--- NOTE | 2016-12-10 01:51 | NUR ---
ADMIT Pt arrived on unit from ED with all personal belongings at apprx 2030. VSS. Oriented to hospital and fall policy. Alert and oriented. 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 Home medication list completed in ED. Bed locked, low position. Nonslip socks on for safety. Call light within reach. Frequent rounding in place. Pleasant and cooperative with care.
[2016-12-10] MEDS ORDERED: KCl 20 mEq/250 mL D5W (K 3 - 3.7 & Cr 2.1 - 2.9) IV ONE ×2 (03:25)
[2016-12-10] MEDS: PARoxetine 20 mg Tablet PO SCH (08:24)
[2016-12-10] MEDS: MeTOProlol XL 50 mg ER24 Tablet PO SCH ×2 (08:25→08:30)
[2016-12-10] MEDS ORDERED: predniSONE 5 mg Tablet PO SCH (08:30)
--- NOTE | 2016-12-10 09:08 | NUR ---
AM medications Pt was hypotensive this am at 99/60's, HR 54. MD in room and aware. Administered all am medications but with held the 100mg Metoprolol, will order new dose to be given. Will continue to monitor.
--- NOTE | 2016-12-10 11:05 | NUR ---
Case Management: [facility] delivered and explained to patient. Signed original placed in chart. Copy left at bedside. Brandy De La Fuente RN
[2016-12-10] MEDS: 0.9% Sodium Chloride 1,000 ML IV SCH (11:36)
--- NOTE | 2016-12-10 12:55 | NUR ---
Evaluation completed. Please go to "Notes" then click on "Assessments and Notes" (bottom left corner of screen). Then select appropriate discipline tab on top of screen.
--- NOTE | 2016-12-10 14:20 | NUR ---
NUTRITION ASSESSMENT: ASSESS: 71YO M admit with possible TIA/CVA, severe sepsis secondary to possible CAP, fever and acute kidney injury. Diet per RN swallow screen, awaiting ST eval. PMHX: CHF,AICD,HTN,hyperlipidemia, tremor, pulmonary embolism/DVT DIET: Puree. PO 50-100% LABS: Reviewed MEDS: Reviewed GI: 1 BM 12/10 WEIGHT: 119.1kg BMI: 38.8 = Obese EST.NEEDS: OBESITY (20-22kcal/kg;1.2-1.5g/kg IBW) Kcal: 4528-9596 Pro: 85-100g NUTRITION DIAGNOSIS: (1) Chew/swallowing difficulty related to difficulty swallowing as evidenced by modified diet texture per RN swallow assessment; ST eval pending. INTERVENTION: (1) Diet advancement per ST assessment. MONITOR/EVALUATE: PO intake, texture tolerance, lab values. F/U per moderate risk.
--- NOTE | 2016-12-10 14:26 | DRSVH ---
PROCEDURE: CT BRAIN WITHOUT CONTRAST ([id number]) INDICATIONS: aphasia TECHNIQUE: Noncontrast 4.5 mm thick angled axial sections acquired from the foramen magnum to the vertex, with c oronal reformats. COMPARISON: [facility], CT, CT BRAIN WO CON, 12/09/2016, 17:22. FINDINGS: Image quality: Excellent. CSF spaces: Basal cisterns are patent. No extra-axial fluid collections. The ventricles are symmet maite in size and shape. There is mild to moderate cerebral volume loss, with resultant ventricular an d sulcal prominence. Brain: No intracranial hemorrhage, mass, or mass effect. There are subcortical, periventricular and deep white matter hypodensities consistent with mild chronic small vessel ischemic changes. There i s intracranial internal carotid artery atherosclerosis. Skull and face: Calvarium and visualized facial bones appear intact, without suspicious lesions. Sinuses: Visualized sinuses and mastoids are clear. IMPRESSION: 1. No acute intracranial abnormality. 2. Chronic white matter small vessel ischemic changes and cerebral volume loss redemonstrated. Dictated by: Brown Champion M.D. on 12/10/2016 at 14:09 Approved by: Brown Champion M.D. on 12/10/2016 at 14:25
--- NOTE | 2016-12-10 14:42 | PCM.PNMED ---
Subjective Date of Service Dec 10, 2016 Subjective pt was able to communicate, AAOX3 doesn't remember exactly what happened yesterday, "I was confused" pt denied difficulty of word findings, mildly tremulous still has very subtle weakness on RLE, otherwise denied motor weakness denied ROSADO, pain on temples, blurry vision, has chronic dry cough, not different from baseline, Exam Vital Signs Vital Sign - Last Date Time Temp Pulse Resp B/P Pulse Ox O2 Delivery O2 Flow Rate FiO2 12/10/16 08:42 36.8 54 16 99/53 97 Room Air Exam obese elderly male, NAD, comfortably laying down on the bed, mild slow talking, AAOx3 motor 5/5 throughout sensory mildly decreased on dull, RLE no tenderness on bilateral temporal area no JVD, MMM, no LAD RRR, nl s1, s2 no mrg CTAB, no w,c, 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 No definite acute intracranial abnormality. 2. Moderate to severe cerebral volume loss and mild chronic white matter small vessel ischemic changes Dictated by: Brown Champion M.D. on 12/09/2016 at 17:43 Chest x-ray 1. Slightly increased left retrocardiac opacities may represent atelectasis or developing consolidation. Dictated by Brown Champion M.D. on 12/09/2016 at 19:09 12-lead ECG She is to be an a flutter Assessment & Plan 71-year-old male with a very complicated medical history pertinent for cardiac disease and recurrent pulmonary embolism/DVT on chronic Xarelto who stopped taking his anticoagulant 3 days ago presents with symptoms of stroke. acute, active acute encephalopathy, with focal neurologic deficit, expressive aphasia in the setting of Xarelto being held, concerning for TIA/stroke; present admission, deficit resolved quickly. CTH on admission negative for bleed. MRI was not able to obtain due to AICD. Due to Acute kidney injury, CT angiogram was also deferred. Risk stratification as lipid panel, LDL55. pt was given plavix, aspirin. statin. -pt showed improved deficit, but very subtle motor weakness on RLE and aphasia, which seemed markedly better since presentation, -Repeat CT non-contrast brain today -continue Atorvastatin 20 mg daily, Aspirin 81 mg daily-this discussed with pt, as aspirin was stopped in the past to reduce bleeding risks. Pt understood at this point that adding aspirin might be better to prevent stroke risks, knowing it can increase risk of bleeding. -Permissive hypertension; control > 220 with labetalol -Speech and Physical therapy -arrange RN visit upon d/c for medication use Febrile episode, not met SIRS, POA. possibely related to GCA flare or unknown source, Pt was initially suspected PNA given CXR findings possible left base opacities. pt was started on Rocephin, azithromycin. However, WBC remained low, unremarkable respiratory sx, unlikely PNA. pt denied diarrhea. UA unremarkable for UTI, no sx of URI. Despite normal wbc, ESR/CRP relatively high, GCA or vasculitic or malignant related etiologies possible. pt had similar episode of fever, hospitalized in May, there was questionable GCA but started on high dose steroid taper. but mainly treated for cellulitis. --Started on ceftriaxone, azithromycin, continue for now -trend Procalcitonin,ESR, Blood cultures, Sputum culture, Strep pneumonia/ legionella ag -Low threshold to increase steroid, will speak to Rheumatology -Previous work-up for vasculitis negative Acute kidney injury with electrolyte abnormalities likely second to sepsis; present on admission; ongoing. Baseline creatinine normal. pt received 2L NS and 80ml/hr maintenance. -trend cr with IVF, avoid renal toxins, adjust med renally chronic, stable Chronic Atrial flutter and hx of recurrent PE, EKG shows a-flutter -Restart Xarelto 20mg qd, metoprolol, Digoxin chronic systolic heart failure; present on admission; ongoing, EF 40% -Continue Metoprolol, lisinopril, and lasix after permissive htn window over -Monitor for signs of overload Hypertension; present on admission; ongoing Continue home medications tomorrow CAD-continue asa and plavix Giant cell arteritis-continue 7mg prednisone for now Hyperlipidemia-on statin Depression-continue paroxetine Disposition: likely 2-3more days Full code GI Prophylaxis: H2 radha Resuscitation Status: CPR: Attempt Resuscitation Time spent 35min Wally Garces MD Dec 10, 2016 08:47 CAD-continue asa and plavix Giant cell arteritis-continue 7mg prednisone Hyperlipidemia-on statin Depression-continue paroxetine Disposition: Patient is being admitted to inpatient status with expected length of stay greater than two midnights due to to severity of presentation, duration of treatment, and risks of adverse events disposition Full code GI Prophylaxis: H2 radha Resuscitation Status: CPR: Attempt Resuscitation Time spent 35min Wally Garces MD Dec 10, 2016 08:47
--- NOTE | 2016-12-10 14:48 | DRSVH ---
[facility] [address] [place] [address] Echocardiogram Report Name: JUSTINO ZAMARRIPA RStudy Date: Height: 69 in Hospital Exam Location: [facility] Weight: 263 lb Gender: Male BSA: 2.3 m2 : 1945 Age: 71 yrs BP: 96/64 m mHg Reason For Study: CVA Performed By: Savanna Solis Referring Physician: HOSPITALIST [facility] Interpretation Summary The left ventricle is mildly dilated. There is no thrombus. The ejection fraction is estimated to be 25-30%. Compared to the prior exam, the left ventricular function is reduced. There is akinesis of entire septum, apex, inferior wall and the distal posterolateral wall. There is apical anterior wall hypokinesis. Compared to the prior exam, the left ventricular wall motion has not changed significantly. The right ventricle is grossly normal size. The right ventricular systolic function is normal. There is a pacemaker lead in the right ventricle. Injection of contrast documented an interatrial shunt. There is mild mitral regurgitation. Compared to the prior echo study, there has been an increase in the severity of mitral regurgitation. There is mild tricuspid regurgitation. Compared to the prior echo exam, there has been no change in TR severity. The right ventricular systolic pressure is estimated at 37 mmHg assuming a right atrial pressure of 8 mm Hg. Compared to the prior echo exam, there has been a decrease in the severity of pulmonary hypertension. The aortic root is moderately dilated. The ascending aorta is severely enlarged (5.3 cm in diameter. No significantly changed from the previous study) Procedure: A two-dimensional transthoracic echocardiogram with color flow and Doppler was performed. The study quality was technically difficult. Comparison is made with the echocardiogram of 07/30/2016. A contrast injection of Definity was performed to improve assessment of LV function. Low suboptimal parasternal acoustic windows. Definity not well visualized in the parasternal windows even with another dose. The patient has a paced rhythm. Left Ventricle: There is normal left ventricular wall thickness. The left ventricle is mildly dilated. There is no thrombus. The ejection fraction is estimated to be 25-30%. Compared to the prior exam, the left ventricular function is reduced. There is akinesis of entire septum, apex, inferior wall and the distal posterolateral wall. There is apical anterior wall hypokinesis. Compared to the prior exam, the left ventricular wall motion has not changed. Assessment of diastolic parameters indicates a relaxation abnormality of the left ventricle, consistent with normal filling pressures. Right Ventricle: There is a pacemaker lead in the right ventricle. The right ventricle is grossly normal size. The right ventricular systolic function is normal. Atria: The left atrium is moderately dilated. The left atrium has mildly increased in size since the prior echo exam. Right atrial size is normal. Injection of contrast documented an interatrial shunt. Bubble study is about 30 seconds in on clip, it captured incorrectly. Mitral Valve: The mitral valve leaflets appear borderline thickened, but open well. There is mild mitral annular calcification. There is no mitral stenosis. There is mild mitral regurgitation. Compared to the prior echo study, there has been an increase in the severity of mitral regurgitation. Aortic Valve: There is mild aortic valve sclerosis. Focal nodular thickening of the right and noncoronary cusps. There is no aortic valve stenosis. There is trace aortic regurgitation. Tricuspid Valve: The tricuspid valve is normal in structure and function. There is mild tricuspid regurgitation. The right ventricular systolic pressure is estimated at 37 mmHg assuming a right atrial pressure of 8 mm Hg. Compared to the prior echo exam, there has been no change in TR severity. Compared to the prior echo exam, there has been a decrease in the severity of pulmonary hypertension. Pulmonic Valve: The pulmonic valve is not well visualized. Great Vessels: The aortic root is moderately dilated. The ascending aorta is severely enlarged. Measures at 5.3cm at the largest seen. The pulmonary artery is normal size. The IVC is dilated (diameter is greater than 2.1 cm) yet it collapses greater than 50% with a sniff. This suggests a right atrial pressure of 8 mm Hg. Pericardium/ Pleura There is no pericardial effusion. There is no pleural effusion. MMode/2D Measurements & Calculations LVIDd: 5.5 cm LA dimension RA long axis LVOT diam: 2.3 cm LVIDs: 3.8 cm AoV Openin.0 cm FS: 30.8 % LA A2 area RA area Ao root diam: 4.9 cm EPSS: 1.6 cm asc Aorta Diam: 5.3 cm IVSd: 1.1 cm : 22.7 cm Ao Arch Diam (Prox LVPWd: 1.0 cm LA A4 area RA vol Trans): 4.3 cm : 77.9 ml LA length (vol) RA : 33.6 mm2 LA vol: 106.4 ml LA vol index IVC diam: 2.3 cm LVAd ap4: 54.1 cm LVAd ap2 LV pedro. diameter/BSA LVAs ap4: 39.8 cm : 51.0 cm EF(MOD-bp) (cm/m^2): 2.4 LVLs ap4: 9.2 cm LVLd ap2: 9.8 cm: 42.0 % EDV(MOD-sp2) EDV(sp2-el) LVAs ap2 : 37.3 cm LVLs ap2: 9.1 cm ESV(MOD-sp2) ESV(sp2-el) EF(MOD-sp2) LV sys. diameter/BSA (cm/m^2): 1.6 Doppler Measurements & Calculations Ao V2 max MV E max todd MV E/A: 0.78 TR max todd : 185.8 cm/sec : 82.8 cm/sec Pulm A Revs : 268.0 cm/sec Ao max P.8 mmHg MV A max todd Dur: 0.16 sec TR max PG Ao mean P.8 mmHg : 105.6 cm/sec MV A dur : 28.7 mmHg LVOT Max Todd : 0.14 sec PA V2 max : 104.3 cm/sec : 87.1 cm/sec LEE(I,D): 2.4 cm PA mean PG sev ratio: 0.57 : 1.7 mmHg MV dec time: 0.18 sec Ao V2 mean LV V1 max PG PA V2 mean : 131.6 cm/sec : 60.7 cm/sec Ao V2 VTI: 40.5 cm LV V1 VTI PA pr(Accel) : 23.2 cm : 26.6 mmHg LEE(V,D): 2.4 cm2 LEE indexed to BSA Pulm A Revs Dur - MV A (cm^2/m^2): 1.0 Dur: 0.01 msec Reading Physician:JON
--- NOTE | 2016-12-10 14:56 | NUR ---
Social Work: Initial Assessment Data: Pt is a 71 y/o female admitted for CVA. Pt's PCP is Tanisha MENESES. Pt's insurance is Medicare. EMR reviewed, pt discussed in multidisciplinary rounds. RADIOPHONE OPERATOR met with pt's daughter for initial assessment. Pt's daughter states that pt and his with dementia live in her basement apartment where he uses a cane and bath bench for DME. 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 Pt's daughter is very concerned, especially for pt's who has dementia and requires a lot of care. She states that pt's has an appointment with her PCP on Tuesday, RADIOPHONE OPERATOR encouraged them to request HH RN and RADIOPHONE OPERATOR for her at that time. PT recommending outpt PT, OT recommending HH OT. MD stated in rounds that pt would benefit from HH RN. RADIOPHONE OPERATOR awaits likely HH order for RADIOPHONE OPERATOR. Assessment: Pt who is independent at baseline, currently capable of self care. Plan: Pt will d/c home via POV when medically stable, likely requiring HH OT, PT, RADIOPHONE OPERATOR, RN. RADIOPHONE OPERATOR awaiting possible MD orders. JASON Sullivan Addendum: 12/10/16 at 1504 by MEL LADD Amended: Links added.
--- NOTE | 2016-12-10 15:40 | NUR ---
Evaluation completed. Please go to "Notes" then click on "Assessments and Notes" (bottom left corner of screen). Then select appropriate discipline tab on top of screen.
[2016-12-10] MEDS ORDERED: cefTRIAXone Inj 2,000 MG in Dextrose 5% Minibag Plus 50 ML IV SCH (21:00)
[2016-12-11] VITALS (7 sets, daily range): BP systolic 104–143; BP diastolic 66–78; PULSE 60–75; RESP 16–18; O2SAT 94–100
[2016-12-11] MEDS: 0.9% Sodium Chloride 1,000 ML IV SCH ×2 (03:21→12:09)
[2016-12-11 06:07] LABS: BASOPHILS % (AUTO) 0.3 % (0-3); MONOCYTES % (AUTO) 37.6 % (4-12); Mean Corpuscular Hemoglobin 28.2 pg (27.0-35.0); Mean Corpuscular Volume 86.6 fL (81-100); NEUTROPHILS % (AUTO) 30.5 % (40-74); Platelet Count 126 bil/L (150-400)
[2016-12-11 06:22] LABS: Magnesium 1.8 mg/dL (1.6-2.6); Phosphorus 2.4 mg/dL (2.5-4.9)
[2016-12-11 07:42] LABS: ERYTHROCYTE SEDIMENTATION RATE 62 mm/hr (0-30)
[2016-12-11] MEDS ORDERED: Potassium Chloride 20 mEq SR Tablet PO ONE (08:10)
[2016-12-11] MEDS ORDERED: MeTOProlol XL 50 mg ER24 Tablet PO ONE (08:20)
[2016-12-11] MEDS: MeTOProlol XL 50 mg ER24 Tablet PO SCH (08:30)
[2016-12-11] MEDS: Multivit-Miner-Folic Acid-Iron Tablet PO SCH (08:34)
[2016-12-11] MEDS: Pantoprazole 20 mg ER24 Tablet PO SCH (08:35)
[2016-12-11] MEDS: PARoxetine 20 mg Tablet PO SCH (08:38)
--- NOTE | 2016-12-11 12:13 | PCM.PNMED ---
Subjective Date of Service Dec 11, 2016 Subjective pt feels well, still has subtle difficulty of word findings, but no slurred alert and oriented, denied weakness on limbs afebrile on home dose steroid, denied cough, sputum, SOB abx was d/natalie today Exam Vital Signs Vital Sign - Last Date Time Temp Pulse Resp B/P Pulse Ox O2 Delivery O2 Flow Rate FiO2 12/11/16 10:49 Room Air 12/11/16 08:54 72 12/11/16 08:20 36.8 18 114/74 100 Intake and Output 12/10/16 12/10/16 12/11/16 Cumulative From/Thru 15:00 23:00 07:00 12/09/16 16:05 - 12/11/16 06:38 Intake Total 350 ml 2305 ml 1830 ml 4485 ml Output Total 50 ml 300 ml 1000 ml 1350 ml Balance 300 ml 2005 ml 830 ml 3135 ml Intake Oral 350 ml 750 ml 636 ml 1736 ml IV Total 1555 ml 1194 ml 2749 ml Output Urine Total 50 ml 300 ml 1000 ml 1350 ml # Bowel Movements 1 1 1 3 Exam obese elderly male, NAD, comfortably laying down on the bed,AAOx3 motor 5/5 throughout sensory mildly decreased on dull, RLE no tenderness on bilateral temporal area no JVD, MMM, no LAD RRR, nl s1, s2 no mrg CTAB, no w,c, 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 No definite acute intracranial abnormality. 2. Moderate to severe cerebral volume loss and mild chronic white matter small vessel ischemic changes Dictated by: Brown Champion M.D. on 12/09/2016 at 17:43 Chest x-ray 1. Slightly increased left retrocardiac opacities may represent atelectasis or developing consolidation. Dictated by Brown Champion M.D. on 12/09/2016 at 19:09 12-lead ECG She is to be an a flutter Assessment & Plan 71-year-old male with a very complicated medical history pertinent for cardiac disease and recurrent pulmonary embolism/DVT on chronic Xarelto who stopped taking his anticoagulant 3 days ago presents with symptoms of stroke. acute, active acute encephalopathy, with focal neurologic deficit, expressive aphasia in the setting of Xarelto being held, concerning for TIA/stroke; present admission, deficit resolved quickly. CTH on admission negative for bleed. MRI was not able to obtain due to AICD. Due to Acute kidney injury, CT angiogram was also deferred. Risk stratification as lipid panel, LDL55. pt was given plavix, aspirin. statin. Repeat CTH 12/10 showed again no acute findings. pt was allowed permissive hypertension on admission. -pt remained neurologically intact, which is markedly better since presentation , -continue Atorvastatin 20 mg daily, Aspirin 81 mg daily-this discussed with pt, as aspirin was stopped in the past to reduce bleeding risks. Pt understood at this point that adding aspirin might be better to prevent stroke risks, knowing it can increase risk of bleeding. -continue daily PT -arrange RN visit upon d/c for medication use Febrile episode, not met SIRS, POA. possibly related to GCA flare or unknown source, Pt was initially suspected PNA given CXR findings possible left base opacities. pt was started on Rocephin, azithromycin. However, WBC remained low, unremarkable respiratory sx, unlikely PNA. pt denied diarrhea. UA unremarkable for UTI, no sx of URI. Despite normal wbc, ESR/CRP relatively high, GCA or vasculitic or malignant related etiologies possible. pt had similar episode of fever, hospitalized in May, there was questionable GCA but started on high dose steroid taper. but mainly treated for cellulitis.Infectious w/u so far ngtd Blood cultures, Sputum culture, Strep pneumonia/legionella ag -labs trend similar however, remained afebrile, minimal respiratory sx today -stop abx today and monitor closely -trend Procalcitonin,ESR, fever curve -Low threshold to increase steroid, will discuss with Rheumatology -Previous work-up for vasculitis negative Acute kidney injury with electrolyte abnormalities likely second to sepsis; present on admission; ongoing. Baseline creatinine normal. pt received 2L NS and 80ml/hr maintenance. -trend cr with IVF, avoid renal toxins, adjust med renally HTN, developed Intermittent hypotensive episode, decreased metoprolol 50mg SR today, monitor for now, continue lisinopril, and lasix chronic, stable Chronic Atrial flutter and hx of recurrent PE, EKG shows a-flutter -Restart Xarelto 20mg qd, metoprolol, Digoxin chronic systolic heart failure; present on admission; ongoing, EF 40%. Repeat TTE showed worsened EF 25-30%, pt clinically euvolemic Hypertension; as above CAD-continue asa and plavix Giant cell arteritis-continue 7mg prednisone for now Hyperlipidemia-on statin Depression-continue paroxetine Disposition: likely 1-2more days, home with CORWIN, RN, PT Full code GI Prophylaxis: H2 radha Resuscitation Status: CPR: Attempt Resuscitation Time spent 35min Wally Garces MD Dec 11, 2016 12:13
[2016-12-11 15:12] LABS: APPEARANCE,URINE HAZY (CLEAR,HAZY); COLOR,URINE YELLOW (YELLOW); OCCULT BLOOD,URINE LARGE (NEGATIVE); PH,URINE 5.5 (5.0-8.0); UROBILINOGEN,URINE NORMAL (NORMAL)
--- NOTE | 2016-12-11 18:37 | NUR ---
Heart Rhythm/Hematuria Pt. converted to AFIB at ~1342 with HR in the 80s. Pt. states upon assessment "feeling extremely tired and more trembling than usual". MD was made aware. Pt. denied CP at the time. Around 1517 Pt. converted back to SR 60s per tele. Pt. again denies CP but states feeling "extremely tired." Around 1355 Pt. had hematuria and MD was made aware. Pt. states feeling no pain and no straining when urinating. Urine sample was collected and sent. Addendum: 12/11/16 at 1848 by LANDY JOY RN Temperature Pt. had a temp. of 37.4 degrees C. MD was made aware and PRN Tylenol was given. Upon reassessment temp. was 37.2 degrees C. At 1630 VS temperature was 36.7 degrees C.
[2016-12-12] VITALS (9 sets, daily range): BP systolic 99–133; BP diastolic 63–80; PULSE 57–82; RESP 16–18; O2SAT 95–98
[2016-12-12] MEDS: 0.9% Sodium Chloride 1,000 ML IV SCH (00:19)
[2016-12-12 05:44] LABS: BASOPHILS % (AUTO) 0.5 % (0-3); EOSINOPHILS % (AUTO) 1.4 % (0-5); MONOCYTES % (AUTO) 36.1 % (4-12); Mean Corpuscular Hemoglobin 28.1 pg (27.0-35.0); Mean Corpuscular Volume 86.4 fL (81-100); NEUTROPHILS % (AUTO) 28.7 % (40-74); Platelet Count 136 bil/L (150-400)
[2016-12-12 06:07] LABS: Magnesium 1.8 mg/dL (1.6-2.6); Phosphorus 3.7 mg/dL (2.5-4.9)
[2016-12-12] MEDS: Multivit-Miner-Folic Acid-Iron Tablet PO SCH (08:05)
[2016-12-12] MEDS: Pantoprazole 20 mg ER24 Tablet PO SCH (08:06)
[2016-12-12] MEDS: PARoxetine 20 mg Tablet PO SCH (08:08)
[2016-12-12] MEDS: MeTOProlol XL 50 mg ER24 Tablet PO SCH ×2 (08:30→12:18)
--- NOTE | 2016-12-12 09:00 | NUR ---
AUGUSTINE signed. JASON Rivero
--- NOTE | 2016-12-12 10:33 | PCM.PNMED ---
Subjective Date of Service Dec 12, 2016 Subjective pt was not febrile since abx dc/ed, denied weakess on LE, no speech difficulty , AAOX3 denied cough, sputum, BP also improved, home regimen resumed including BB pt reportedly had urinary difficulty with hematuria, repeat UA indeed showed hematuria, in AM, pt denied burning, difficulty voiding, symptoms were gone Exam Vital Signs Vital Sign - Last Date Time Temp Pulse Resp B/P Pulse Ox O2 Delivery O2 Flow Rate FiO2 12/12/16 10:11 37.1 82 18 126/70 95 Room Air Intake and Output 12/11/16 12/11/16 12/12/16 Cumulative From/Thru 15:00 23:00 07:00 12/09/16 16:05 - 12/12/16 05:45 Intake Total 886 ml 550 ml 5921 ml Output Total 1175 ml 925 ml 3450 ml Balance -289 ml -375 ml 2471 ml Intake Oral 886 ml 550 ml 3172 ml IV Total 2749 ml Output Urine Total 1175 ml 925 ml 3450 ml # Voids 1 1 # Bowel Movements 1 4 Exam obese elderly male, NAD, comfortably laying down on the bed,AAOx3 motor 5/5 throughout sensory mildly decreased on dull, RLE no tenderness on bilateral temporal area no JVD, MMM, no LAD RRR, nl s1, s2 no mrg CTAB, no w,c, 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 No definite acute intracranial abnormality. 2. Moderate to severe cerebral volume loss and mild chronic white matter small vessel ischemic changes Dictated by: Brown Champion M.D. on 12/09/2016 at 17:43 Chest x-ray 1. Slightly increased left retrocardiac opacities may represent atelectasis or developing consolidation. Dictated by Brown Champion M.D. on 12/09/2016 at 19:09 12-lead ECG She is to be an a flutter Assessment & Plan 71-year-old male with a very complicated medical history pertinent for cardiac disease and recurrent pulmonary embolism/DVT on chronic Xarelto who stopped taking his anticoagulant 3 days ago presents with symptoms of stroke. acute, active acute encephalopathy, with focal neurologic deficit, expressive aphasia in the setting of Xarelto being held, concerning for TIA/stroke; present admission, deficit resolved quickly. CTH on admission negative for bleed. MRI was not able to obtain due to AICD. Due to Acute kidney injury, CT angiogram was also deferred. Risk stratification as lipid panel, LDL55. pt was given plavix, aspirin. statin. Repeat CTH 12/10 showed again no acute findings. pt was allowed permissive hypertension on admission. -pt remained neurologically intact, back to baseline -continue Atorvastatin 20 mg daily, Aspirin 81 mg daily-this discussed with pt, as aspirin was stopped in the past to reduce bleeding risks. Pt understood at this point that adding aspirin might be better to prevent stroke risks, knowing it can increase risk of bleeding. -continue daily PT -arrange RN visit upon d/c for medication use Febrile episode, not met SIRS, POA. possibly related to GCA flare or unknown source, Pt was initially suspected PNA given CXR findings possible left base opacities. pt was started on Rocephin, azithromycin. However, WBC remained low, unremarkable respiratory sx, unlikely PNA. pt denied diarrhea. UA unremarkable for UTI, no sx of URI. Despite normal wbc, ESR/CRP relatively high, GCA or vasculitic or malignant related etiologies possible. pt had similar episode of fever, hospitalized in May, there was questionable GCA but started on high dose steroid taper. but mainly treated for cellulitis.Infectious w/u so far ngtd Blood cultures, Sputum culture, Strep pneumonia/legionella ag. Given low infection for PNA, stopped abx 12/11 -labs trend better after abx d/natalie, PCT trending down, remained afebrile, minimal respiratory sx. will observe one more day w/o abx -trend Procalcitonin,ESR, fever curve -Low threshold to increase steroid, will discuss with Rheumatology -Previous work-up for vasculitis negative Acute kidney injury with electrolyte abnormalities likely second to sepsis; present on admission; ongoing. Baseline creatinine normal. pt received 2L NS and 80ml/hr maintenance. -IVF stopped today -creatinine improved with IVF, avoid renal toxins, adjust med renally HTN, developed Intermittent hypotensive episode, metoprolol held yesterday, resume today as BP more stable, monitor for now, continue lisinopril, and lasix void difficulty with suprapubic pain, hematuria+on RA, developed , possible passed kidney stones, will monitor sx for now chronic, stable Chronic Atrial flutter and hx of recurrent PE, EKG shows a-flutter, restarted Xarelto 20mg qd, metoprolol, Digoxin chronic systolic heart failure; present on admission; ongoing, EF 40%. Repeat TTE showed worsened EF 25-30%, pt clinically euvolemic but gained significant wt since adm, increase lasix to po 40 bid from daily Hypertension; as above CAD-continue asa and plavix Giant cell arteritis-continue 7mg prednisone for now Hyperlipidemia-on statin Depression-continue paroxetine Disposition: likely tomorrow, home with CORWIN, RN, PT Full code GI Prophylaxis: H2 radha Resuscitation Status: CPR: Attempt Resuscitation Time spent 35min Wally Garces MD Dec 12, 2016 10:33
--- NOTE | 2016-12-12 13:28 | NUR ---
Social Work-readiness for discharge: Data:EMR Reviewed.Pt is on day 3 of hospitalization for CVA per H&P. Pt is not medically stable anticipate 1-2 more days. order received for HH services, RN,PT,OT, and LEAD MACHINIST 3 times a week. SW met with pt at bedside to discuss, SW role explained. Pt is alert and oriented x3. SW explained recommendation of HH Services, pt is agreeable, HH choice list provided. Pt has no agency preference. SW referred to rotating calendar and made referral to [facility] for RN,PT,OT, and LEAD MACHINIST, access given. F2F to be completed by . SW will continue to follow. Assessment:pt to benefit from HH. Plan:Pt to discharge home when medically stable via POV. Referral made to [facility] for RN,PT,OT, and LEAD MACHINIST, access given. F2F to be completed by . SW will continue to follow. JASON Rivero
--- NOTE | 2016-12-12 17:34 | NUR ---
Neuros Previous weakness appears resolved. Speech with slight word searching early this AM but not apparent this afternoon. Ind ambulation at this time and steady on feet. Up to chair for meals. Making needs known appropriately using call light.
[2016-12-13 01:13] VITALS: BP 96/58; PULSE 62; RESP 16; O2SAT 97
[2016-12-13 04:08] VITALS: BP 110/72; PULSE 57; RESP 18; O2SAT 97
[2016-12-13 05:48] LABS: BASOPHILS % (AUTO) 0 % (0-3); EOSINOPHILS % (AUTO) 1.2 % (0-5); MONOCYTES % (AUTO) 32.5 % (4-12); Mean Corpuscular Hemoglobin 27.6 pg (27.0-35.0); Mean Corpuscular Volume 86.8 fL (81-100); Platelet Count 127 bil/L (150-400)
[2016-12-13 06:16] LABS: Magnesium 1.7 mg/dL (1.6-2.6); Phosphorus 3.6 mg/dL (2.5-4.9)
--- NOTE | 2016-12-13 06:17 | NUR ---
activity Pt alert and oriented, no complaints of pain or discomfort. Pt neuros wnl, no noted deficits, vitals wnl, will continue to monitor pt.
[2016-12-13] MEDS: PARoxetine 20 mg Tablet PO SCH (08:01)
[2016-12-13] MEDS: Pantoprazole 20 mg ER24 Tablet PO SCH (08:02)
[2016-12-13] MEDS: Multivit-Miner-Folic Acid-Iron Tablet PO SCH (08:02)
[2016-12-13] MEDS ORDERED: CARV3.122 PO (08:07)
[2016-12-13] MEDS ORDERED: ASPI81TA3 PO (08:07)
[2016-12-13] MEDS ORDERED: FURO-129 PO (08:07)
[2016-12-13] MEDS ORDERED: LISI-571 PO (08:07)
--- NOTE | 2016-12-13 09:18 | PCM.DIMED ---
Discharge Instructions Date of Service Dec 13, 2016 Dates of Hospitalization Dec 09, 2016 at 19:22 Discharge Diagnosis Discharge Diagnosis acute dx probable TIA or ischemic stroke Febrile episode, unclear etiology Acute kidney injury, prerenal Hypotensive episode, likely medication induced Voiding difficulty with suprapubic pain, hematuria, possible transient nephrolithiasis worsened chronic systolic heart failure chronic dx Chronic Atrial flutter and hx of recurrent PE, Hypertension; CAD Giant cell arteritis Hyperlipidemia Depression Medication Instructions Additional med instructions Please take furosemide 40 mg twice a day instead of once a day until you see your doctor Please take aspirin 81 mg daily for stroke and heart attack prevention Please note that your metoprolol succinate 100 mg was changed to carvedilol 3.125 mg twice a day, dosage will be adjusted by her doctor in the clinic Please continue steroid taper as instructed by Dr. Chavez Diet Discharge Diet: Low fat, Low Sodium, Heart Healthy Activity Discharge Activity: No restrictions Patient Instructions Patient Instructions You were hospitalized due to concern for stroke with difficulty word finding, although we were not able to confirm acute episode of stroke. Based on the exam and presentation, it is likely that you have developed mini stroke "TIA". You were monitored closely in the hospital. You developed fever, initially treated for pneumonia, but antibiotics were stopped given low suspicion for infection. You also developed urinary difficulty likely from kidney stone. Given your worsened heart function, your regimen was changed for heart failure. Please follow-up with your primary doctor in 1 week Please also follow up with Dr. Yoo in 2-4weeks Follow-up Provider: Tanisha Sal Follow-up with PCP in: 1 week Provider: Blessing Yoo MD Follow-up in: 4 weeks Wally Garces MD Dec 13, 2016 09:18
[2016-12-13 10:06] VITALS: BP 114/69; PULSE 60; RESP 16; O2SAT 97
[2016-12-13 10:22] VITALS: PULSE 56
[2016-12-13 13:03] VITALS: BP 110/74; PULSE 63; RESP 18; O2SAT 97
[2016-12-13] MEDS ORDERED: Magnesium Sulf 2 Gm/50mL Water 2 GM in IV Premix 1 EACH IV ONE (13:55)
[2016-12-13] MEDS ORDERED: Potassium Chloride 20 mEq SR Tablet PO ONE (13:55)
[2016-12-13 14:02] VITALS: BP 108/66; PULSE 61; RESP 18
--- NOTE | 2016-12-13 14:43 | PCM.DC.MED ---
Discharge Summary Date of Service Dec 13, 2016 Dates of Hospitalization Date of Hospital Admission Dec 09, 2016 at 19:22 Date of Discharge: Dec 13, 2016 Providers: Admitting Physician: Dmitry Nicole MD Primary Care Physician: Tanisha Sal Attending Physician: Wally Castaneda MD Diagnosis at Time of Discharge Diagnosis at Time of Discharge acute dx probable TIA or ischemic stroke Febrile episode, unclear etiology Acute kidney injury, prerenal Hypotensive episode, likely medication induced Voiding difficulty with suprapubic pain, hematuria, possible transient nephrolithiasis worsened chronic systolic heart failure chronic dx Chronic Atrial flutter and hx of recurrent PE, Hypertension; CAD Giant cell arteritis Hyperlipidemia Depression Procedures XRay, CTs & MRIs Brain CT 1. No definite acute intracranial abnormality. 2. Moderate to severe cerebral volume loss and mild chronic white matter small vessel ischemic changes Dictated by: Brown Champion M.D. on 12/09/2016 at 17:43 Chest x-ray 1. Slightly increased left retrocardiac opacities may represent atelectasis or developing consolidation. Dictated by Brown Champion M.D. on 12/09/2016 at 19:09 ECG 12 Lead She is to be an a flutter Brief History HPI obtained by Dr. Nicole 71-year-old male with history of NM with LAD stenting who presented to the emergency department 11/2015, CHF with an EF of 40% and AICD, hypertension, hyperlipidemia, TAA, giant cell arteritis on chronic prednisone, and history of multiple DVT/PE who is normally on Xarelto who presented to emergency department with his family this evening due to no small aphasia, difficulty swallowing, some decreased strength in his right leg, and cloudy mentation that started today around 10 AM today. Patients family states that his speech became erratic and non-sensical for 2-3 hours. The speech improved slightly before he presented but on interview he is still having trouble finding words and his speech is noticeably delayed. He endorses chills, fever, malaise, diaphoresis, mild cough. Pt denies focal numbness, headache, or cough, sputum, SOB, dysuria, diarrhea, nausea/vomiting. 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 In the ED pt had a CT brain was negative for bleed with noticeable volume loss. Patient was given 100mg and 2L NS. Patient became febrile while in the ED and was treated with Ceftriaxone. CMP was positive for numerous electrolyte abnormalities with elevated creatinine. NIH score of 3 when seen by ED physician. Hospital Course 71-year-old male with a very complicated medical history pertinent for cardiac disease and recurrent pulmonary embolism/DVT on chronic Xarelto who stopped taking his anticoagulant 3 days ago presents with symptoms of stroke. acute dx acute encephalopathy with focal neurologic deficit, expressive aphasia in the setting of Xarelto being held, concerning for TIA/stroke aphasia resolved quickly. CTH on admission negative for bleed. MRI was not able to obtain due to AICD. Due to Acute kidney injury, CT angiogram was also deferred. Risk stratification as lipid panel, LDL55. pt was given plavix, aspirin. statin on admission. Xarelto and aspirin continued. Repeat CTH 12/10 showed again no acute findings. pt was allowed permissive hypertension on admission then bp remained mildly hypotensive. Patient was closely monitored with aspirin and Xarelto, didn't show any signs of bleeding, tolerated well. Pt understood at this point that adding aspirin might be better to prevent stroke risks, knowing it can increase risk of bleeding. Given resolution of focal deficit, pt deemed safe to go home with RN, PT, OT, HH. Febrile episode, pt didn't meet SIRS, POA. possibly related to ?GCA flare or unknown source, Pt was initially suspected PNA given CXR findings possible left base opacities. pt was started on Rocephin, azithromycin. However, WBC remained low, unremarkable respiratory sx, unlikely PNA. pt denied diarrhea. UA unremarkable for UTI, no sx of URI. Despite normal wbc, ESR/CRP relatively high, GCA or vasculitic or malignant related etiologies possible. pt had similar episode of fever, hospitalized in May, there was questionable GCA so started on high dose steroid taper. but at that time, pt was mainly treated for cellulitis. Infectious w/u were all ngtd including Sputum culture, Strep pneumonia/legionella ag. Given low infection for PNA, stopped abx 12/11. Pt had one BCX positive for Dipheroid, though to be contamination. Patient was stable after abx was stopped for 2more days without fever. No further w/u for vasculitis, rheumatolic dz were persued given stable clinical condition. Acute kidney injury with electrolyte abnormalities likely second to sepsis; Baseline creatinine normal. pt received 2L NS and 80ml/hr maintenance for several days, resulted mild wt gain, required increased dose of lasix po. Creatinine improved with IVF HTN, developed Intermittent hypotensive episode, metoprolol was frequently held. Episode of voiding difficulty with suprapubic pain, hematuria+on RA, developed -, possible passed kidney stones, will monitor sx for now chronic, stable Chronic Atrial flutter and hx of recurrent PE, EKG shows a-flutter, restarted Xarelto 20mg qd, metoprolol, Digoxin Chronic systolic heart failure; previous echo showed EF 40%. Repeat TTE showed worsened EF 25-30%, pt clinically euvolemic but gained significant wt since adm , increase lasix to po 40 bid from daily, plan to continue this dosage until pt sees PCP. Hypertension; as above CAD-continue asa Giant cell arteritis-continue 7mg prednisone, pt is doing monthly decrement of 1mg, starting 6mg tomorrow. Hyperlipidemia-on statin Depression-continue paroxetine Exam Vital Signs (Last) Date Time Temp Pulse Resp B/P Pulse Ox O2 Delivery O2 Flow Rate FiO2 12/13/16 14:02 61 18 108/66 Room Air 12/13/16 13:03 36.9 97 Exam pt was examined on the day of d/c Test 12/09/16 16:17 12/09/16 17:09 12/09/16 17:16 12/09/16 22:07 Triglycerides Level 84mg/dL (0-149) Cholesterol Level 103mg/dL (100-199) LDL Cholesterol, Calculated 58.200mg/dL (0-99) VLDL Cholesterol 16.800mg/dL HDL Cholesterol 28mg/dL (>39) Cholesterol/HDL Ratio 3.68 (0.0-4.4) Digoxin Level 0.5nG/mL (0.9-2.0) Prothrombin Time 13.1sec (8.1-12.5) Prothromb Time International Ratio 1.22ratio Troponin T < 0.010ug/L (0.0-0.011) Hemoglobin A1c 6.5% (4.8-5.6) Test 12/09/16 23:00 12/10/16 00:41 12/10/16 13:49 12/11/16 05:12 Urine Legionella pneumophilia Ag Negative (Negative) Lactic Acid Level 1.3mmol/L (0.4-2.0) C-Reactive Protein 26.6mg/dL (0.0-0.5) Hold Urine Received (Received) Erythrocyte Sedimentation Rate 62mm/hr (0-30) Test 12/11/16 14:43 12/13/16 05:10 Urine Color Yellow (YELLOW) Urine Appearance Hazy (CLEAR,HAZY) Urine pH 5.5 (5.0-8.0) Urine Specific [place] 1.020 (1.003-1.035) Urine Protein Negativemg/dL (NEG,TRACE) Urine Glucose (UA) Negativemg/dL (NEGATIVE) Urine Ketones Negativemg/dL (NEGATIVE) Urine Occult Blood Large (NEGATIVE) Urine Nitrite Negative (NEGATIVE) Urine Bilirubin Negative (NEGATIVE) Urine Urobilinogen Normalmg/dL (NORMAL) Urine Leukocyte Esterase Negative (NEGATIVE) Urine RBC 11-50/hpf (0-2) Urine WBC 0-5/hpf (0-5) Urine Epithelial Cells None/hpf (NONE-MOD) Urine Crystals None seen (NONE SEEN) Urine Bacteria None/hpf (NONE-FEW) Urine Hyaline Casts None/lpf (NONE) Urine Granular Casts None seen (NONE SEEN) Urine Waxy Casts None seen (NONE SEEN) Urine Red Blood Cell Casts None seen (NONE SEEN) Urine White Blood Cell Casts None seen (NONE SEEN) Urine Mucus None seen (None Seen) Urine Trichomonas None seen (NONE SEEN) Urine Yeast None (NONE SEEN) Urinalysis Comment None Urine Culture Reflexed Not indicated White Blood Count 2.4th/mm3 (3.8-10.1) Red Blood Count 3.48mil/mm3 (4.40-5.80) Hemoglobin 9.6g/dL (13.8-17.2) Hematocrit 30.2% (41.0-50.0) Mean Corpuscular Volume 86.8fL (81-100) Mean Corpuscular Hemoglobin 27.6pg (27.0-35.0) Mean Corpuscular Hemoglobin Concent 31.8% (32.0-37.0) Red Cell Distribution Width 16.1% (12.3-15.4) Platelet Count 127bil/L (150-400) Neutrophils (%) (Auto) 30.0% (40-74) Lymphocytes (%) (Auto) 34.2% (14-46) Monocytes (%) (Auto) 32.5% (4-12) Eosinophils (%) (Auto) 1.2% (0-5) Basophils (%) (Auto) 0% (0-3) Sodium Level 141mEq/L (134-144) Potassium Level 3.6mEq/L (3.5-5.2) Chloride Level 105mEq/L (97-108) Carbon Dioxide Level 21mmol/L (18-29) Blood Urea Nitrogen 14mg/dL (8-27) Creatinine 0.90mg/dL (0.76-1.27) Estimat Glomerular Filtration Rate 88mL/min (>59) Glucose Level 103mg/dL (60-99) Calcium Level 8.8mg/dL (8.5-10.1) Phosphorus Level 3.6mg/dL (2.5-4.9) Magnesium Level 1.7mg/dL (1.6-2.6) Total Bilirubin 0.3mg/dL (0.0-1.2) Aspartate Amino Transf (AST/SGOT) 24U/L (0-50) Alanine Aminotransferase (ALT/SGPT) 22U/L (0-44) Alkaline Phosphatase 78U/L (25-160) Total Protein 5.3g/dL (6.4-8.4) Albumin 3.2g/dL (3.4-5.0) Procalcitonin 0.16ng/mL (0.00-0.08) Discharge Medications Discharge Medications Aspirin Chew (Aspirin Chew) 81 Mg Chew 81 MG PO DAILY Prescribed by: WALLY CASTANEDA MD Carvedilol (Carvedilol) 3.125 Mg Tablet 3.125 MG PO BIDWM Prescribed by: WALLY CASTANEDA MD Digoxin (Digoxin) 125 Mcg Tablet 125 MCG PO DAILY (Reported) Furosemide (Lasix) 20 Mg Tablet 40 MG PO BID Prescribed by: WALLY CASTANEDA MD Lisinopril (Lisinopril) 5 Mg Tablet 5 MG PO DAILY Prescribed by: WALLY CASTANEDA MD Magnesium Oxide (Magnesium) 250 Mg Tablet 250 MG PO DAILY (Reported) Metoprolol Succinate ER (Metoprolol Succinate ER) 100 Mg Tab.er.24h 100 MG PO AM (Reported) Multivits-Min/FA/Lycopene/Lut (Centrum Silver Tablet) 1 Each Tablet 1 EACH PO MORNING (Reported) Omeprazole (Omeprazole) 20 Mg Tablet.dr 20 MG PO MORNING (Reported) Paroxetine (Paroxetine) 40 Mg Tablet 40 MG PO HS (Reported) Prednisone (PredniSONE) 5 Mg Tab 7 MG PO DAILY (Reported) Rivaroxaban (Xarelto) 20 Mg Tablet 20 MG PO DAILYWD (Reported) Simvastatin (Simvastatin) 20 Mg Tablet 20 MG PO HS (Reported) Additional med instructions Please take furosemide 40 mg twice a day instead of once a day until you see your doctor Please take aspirin 81 mg daily for stroke and heart attack prevention Please note that your metoprolol succinate 100 mg was changed to carvedilol 3.125 mg twice a day, dosage will be adjusted by her doctor in the clinic Please continue steroid taper as instructed by Dr. Chavez Followup Plan Disposition: home Discharge Diet: Low fat, Low Sodium, Heart Healthy Discharge Activity: No restrictions Patient Instructions You were hospitalized due to concern for stroke with difficulty word finding, although we were not able to confirm acute episode of stroke. Based on the exam and presentation, it is likely that you have developed mini stroke "TIA". You were monitored closely in the hospital. You developed fever, initially treated for pneumonia, but antibiotics were stopped given low suspicion for infection. You also developed urinary difficulty likely from kidney stone. Given your worsened heart function, your regimen was changed for heart failure. Please follow-up with your primary doctor in 1 week Please also follow up with Dr. Yoo in 2-4weeks Follow-up Provider: Tanisha Sal Follow-up with PCP in: 1 week Provider: Blessing Yoo MD Follow-up in: 4 weeks Time spent 65min Wally Castaneda MD Dec 13, 2016 14:43
--- NOTE | 2016-12-13 15:36 | NUR ---
Social Work-readiness for discharge: Data:EMR Reviewed.Pt is on day 4 of hospitalization for CVA per H&P. Pt is not medically stable anticipate 1-2 more days. SW has arranged HH through [facility] RN,PT,OT, and [facility] [employer]. SW updated pt's daughter and son in law to discuss discharge planning, SW role explained. SW explained that HH has been set up and they are agreeable to this plan. Daughter states they are working on having an emergency placement for pt's currently. F2F to be completed by . SW will continue to follow. Assessment:pt to benefit from HH. Plan:Pt to discharge home when medically stable via POV. Referral made to [facility] for RN,PT,OT, and [employer], access given. F2F to be completed by . SW will continue to follow. JASON Rivero
--- NOTE | 2016-12-13 17:16 | NUR ---
Discharge Patient discharge to home with all belongings at 1714. Explained to patient new medications (aspirin, carvedilol, lisinopril), when next dose are due, and discharge instructions. Patient verbalized understanding. Dc'd IV Intact. Dc'd telemetry. Vitals stable. Patient left floor via wheelchair accompanied by METAL ROOFER and family with no signs of distress.
--- NOTE | 2016-12-14 10:37 | NUR ---
Social Work-late entry: ALICIA updated this morning that pt discharge after hours last evening. ALICIA informed Stuart Bush with [facility] of discharge and provided him with F2F and orders for RN and PT. Pt to return home with daughter. All updated and agreeable to plan. JASON Rivero
== END 2016-12-13 17:15 | disposition home health service (06) | DRG 69 ==
LOC: SED 15:57 → MPC 19:22 → OBSVTOIN 19:22
PROVIDERS: ADMIT Hospitalist; ATTEND Hospitalist
DX: G45.9 Transient cerebral ischemic attack, unspecified (principal); G93.40 Encephalopathy, unspecified; N17.9 Acute kidney failure, unspecified; I48.92 Unspecified atrial flutter; I50.22 Chronic systolic (congestive) heart failure; I10 Essential (primary) hypertension; I25.10 Atherosclerotic heart disease of native coronary artery without angina pectoris; E78.5 Hyperlipidemia, unspecified; F32.9 Major depressive disorder, single episode, unspecified; M31.6 Other giant cell arteritis; Z95.810 Presence of automatic (implantable) cardiac defibrillator; Z86.718 Personal history of other venous thrombosis and embolism; Z79.01 Long term (current) use of anticoagulants; Z87.891 Personal history of nicotine dependence